=== PATIENT | male | born 1990 | race Two or more races ===

== ENCOUNTER 2017-08-30 00:06 | Inpatient (IN) | payer OTHER ==
[2017-08-30] VITALS (7 sets, daily range): BP systolic 117–144; BP diastolic 73–85
[~2017-08-30] VITALS: Ht 177.8 cm; Wt 127.9 kg
[2017-08-30] MEDS ORDERED: Aspirin Baby 81mg ORAL ONE (00:30)
[2017-08-30 00:48] LABS: BASOPHILS % (AUTO) 0.9 % (0.0-2.0); HEMATOCRIT 48.9 % (42.0-52.0); HEMOGLOBIN 16.1 G/DL (14.2-18.0); LYMPHOCYTES % (AUTO) 15.1 % (20.0-45.0); MEAN CORPUSCULAR VOLUME 85 FL (80-99); MONOCYTES % (AUTO) 7.4 % (1.0-10.0); NEUTROPHILS % (AUTO) 75.6 % (45.0-75.0); PLATELET COUNT 269 K/UL (150-450); RED BLOOD COUNT 5.74 M/UL (4.70-6.10); RED CELL DISTRIBUTION WIDTH 13.7 % (11.6-14.8); WHITE BLOOD COUNT 14.7 K/UL (4.8-10.8)
--- NOTE | 2017-08-30 00:53 | Emergency Room Report ---
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 He is status post surgery when he was an . He presents with chief complaint of syncope. He said he was sitting down when he felt flushed and dizzy. He said he cannot focus. When he stood up symptom got worse. He never passed out. He was able to call 911. This lasted about a minute. He has similar symptom a week ago. He was sent this long though. He had the symptoms rarely in the past. He had a Holter monitor the past that were negative. He also had one for a month and nothing showed up. He did not have any symptoms however when he was wearing Holter monitor. He is back to baseline now. No nausea no vomiting. Has chest tightness when the event occurred. He said he felt his heart was beating fast. Allergies: Coded Allergies: No Known Allergies (Unverified , 08/30/17) Patient History Past Medical History: see triage record, old chart reviewed Past Surgical History: other Pertinent Family History: none Social History: Reports: alcohol use; Denies: smoking Immunizations: other Reviewed Nursing Documentation: PMH: Agreed; PSxH: Agreed Nursing Documentation-PMH Past Medical History: No History, Except For Hx Cardiac Problems: Yes - "heart defect as a child" Review of Systems Eye: Denies: eye pain, blurred vision ENT: Denies: ear pain, nose congestion, throat swelling Respiratory: Denies: cough, shortness of breath Cardiovascular: Reports: palpitations, syncope; Denies: chest pain Gastrointestinal: Denies: abdominal pain, diarrhea, nausea, vomiting Musculoskeletal: Denies: back pain, joint pain Skin: Denies: rash Neurological: Denies: headache, numbness Endocrine: Denies: increased thirst, increased urine Hematologic/Lymphatic: Denies: easy bruising All Other Systems: negative except mentioned in HPI Physical Exam Vital Signs Date Time Temp Pulse Resp B/P (MAP) Pulse Ox O2 Delivery O2 Flow Rate FiO2 08/30/17 00:06 98.1 102 16 125/79 99 Room Air 98.1 vitals normal Sp02 EP Interpretation: reviewed, normal General Appearance: well appearing, no apparent distress, alert, obese Head: normocephalic, atraumatic Eyes: bilateral eye PERRL, bilateral eye EOMI ENT: hearing grossly normal, normal pharynx Neck: full range of motion, supple, no meningismus Respiratory: chest non-tender, lungs clear, normal breath sounds Cardiovascular #1: regular rate, rhythm, no murmur Gastrointestinal: normal bowel sounds, non tender, no mass, no organomegaly, no bruit, non-distended Musculoskeletal: back normal, gait/station normal, normal range of motion Psychiatric: mood/affect normal Skin: warm/dry Medical Decision Making Diagnostic Impression: Primary Impression: Near syncope Additional Impressions: CHF (congestive heart failure) Qualified Codes: I50.9 - Heart failure, unspecified Cardiomyopathy Qualified Codes: I42.9 - Cardiomyopathy, unspecified Morbid obesity with BMI of 40.0-44.9, adult ER Course Patient presents with palpitation and near syncope. I suspect that he probably had a arrhythmia. No symptom while he is here. Chest x-ray shows severe cardiomegaly. Unknown ejection fraction. This may be secondary to his congenital heart disease. Patient will be admitted for further workup. I discussed case with Dr. Ortega who will admit. Laboratory Tests Test 08/30/17 00:33 08/30/17 00:45 White Blood Count 14.7 K/UL (4.8-10.8) H Red Blood Count 5.74 M/UL (4.70-6.10) Hemoglobin 16.1 G/DL (14.2-18.0) Hematocrit 48.9 % (42.0-52.0) Mean Corpuscular Volume 85 FL (80-99) Mean Corpuscular Hemoglobin 28.1 PG (27.0-31.0) Mean Corpuscular Hemoglobin Concent 32.9 G/DL (32.0-36.0) Red Cell Distribution Width 13.7 % (11.6-14.8) Platelet Count 269 K/UL (150-450) Mean Platelet Volume 7.3 FL (6.5-10.1) Neutrophils (%) (Auto) 75.6 % (45.0-75.0) H Lymphocytes (%) (Auto) 15.1 % (20.0-45.0) L Monocytes (%) (Auto) 7.4 % (1.0-10.0) Eosinophils (%) (Auto) 1.0 % (0.0-3.0) Basophils (%) (Auto) 0.9 % (0.0-2.0) Sodium Level 137 MMOL/L (136-145) Potassium Level 4.4 MMOL/L (3.5-5.1) Chloride Level 103 MMOL/L (98-107) Carbon Dioxide Level 26 MMOL/L (21-32) Anion Gap 8 mmol/L (5-15) Blood Urea Nitrogen 16 mg/dL (7-18) Creatinine 1.1 MG/DL (0.55-1.30) Estimat Glomerular Filtration Rate > 60 mL/min (>60) Glucose Level 122 MG/DL (74-106) H Calcium Level 9.2 MG/DL (8.5-10.1) Total Bilirubin 0.4 MG/DL (0.2-1.0) Aspartate Amino Transf (AST/SGOT) 34 U/L (15-37) Alanine Aminotransferase (ALT/SGPT) 59 U/L (12-78) Alkaline Phosphatase 103 U/L (46-116) Total Creatine Kinase 97 U/L (26-308) Creatine Kinase MB 2.2 NG/ML (0.0-3.6) Creatine Kinase MB Relative Index 2.2 Troponin I 0.024 ng/mL (0.000-0.056) Pro-B-Type Natriuretic Peptide 1239 pg/mL (0-125) H Total Protein 7.6 G/DL (6.4-8.2) Albumin 3.5 G/DL (3.4-5.0) Globulin 4.1 g/dL Albumin/Globulin Ratio 0.9 (1.0-2.7) L Urine Color Yellow Urine Appearance Clear Urine pH 5 (4.5-8.0) Urine Specific [place] 1.025 (1.005-1.035) Urine Protein 3+ (NEGATIVE) H Urine Glucose (UA) Negative (NEGATIVE) Urine Ketones Negative (NEGATIVE) Urine Occult Blood Negative (NEGATIVE) Urine Nitrite Negative (NEGATIVE) Urine Bilirubin Negative (NEGATIVE) Urine Urobilinogen Normal MG/DL (0.0-1.0) Urine Leukocyte Esterase 1+ (NEGATIVE) H Urine RBC 0-2 /HPF (0 - 0) H Urine WBC 5-10 /HPF (0 - 0) H Urine Squamous Epithelial Cells None /LPF (NONE/OCC) Urine Bacteria Few /HPF (NONE) Urine Sperm Few /LPF (NONE) Urine Opiates Screen Negative (NEGATIVE) Urine Barbiturates Screen Negative (NEGATIVE) Phencyclidine (PCP) Screen Negative (NEGATIVE) Urine Amphetamines Screen Negative (NEGATIVE) Urine Benzodiazepines Screen Negative (NEGATIVE) Urine Cocaine Screen Negative (NEGATIVE) Urine Marijuana (THC) Screen Negative (NEGATIVE) Lab Results Impression labs with elevated BNP EKG Diagnostic Results Rate: normal Rhythm: NSR ST Segments: other - RBBB ASA given to the pt in ED: Yes Rhythm Strip Diag. Results Rhythm Strip Time: 00:53 EP Interpretation: yes Rate: 94 Rhythm: NSR, no PVC's, no ectopy Chest X-Ray Diagnostic Results Chest X-Ray Diagnostic Results : Chest X-Ray Ordered: Yes # of Views/Limited/Complete: 1 View Indication: Chest Pain EP Interpretation: Yes Interpretation: no consolidation, no effusion, no pneumothorax, other - CM Impression: Other - CM Last Vital Signs Date Time Temp Pulse Resp B/P (MAP) Pulse Ox O2 Delivery O2 Flow Rate FiO2 08/30/17 00:10 102 16 Room Air 08/30/17 00:06 98.1 125/79 99 98.1 Status: improved Disposition: ADMITTED INPATIENT Condition: Serious Scripts No Active Prescriptions or Reported Meds Referrals: NOT CHOSEN IPA/,REFERRING (PCP) AHSAN DALAL M.D. August 30, 2017 00:53
[2017-08-30 00:56] LABS: APPEARANCE,URINE CLEAR; BILIRUBIN, URINE NEGATIVE (NEGATIVE); GLUCOSE, URINE (UA) NEGATIVE (NEGATIVE); KETONES,URINE NEGATIVE (NEGATIVE); NITRITE,URINE NEGATIVE (NEGATIVE); PH,URINE 5 (4.5-8.0); PROTEIN,URINE 3+ (NEGATIVE); UROBILINOGEN,URINE NORMAL MG/DL (0.0-1.0)
[2017-08-30 00:59] LABS: ANION GAP 8 mmol/L (5-15); BLOOD UREA NITROGEN 16 mg/dL (7-18); CALCIUM 9.2 MG/DL (8.5-10.1); CARBON DIOXIDE 26 MMOL/L (21-32); CHLORIDE 103 MMOL/L (98-107); CREATININE 1.1 MG/DL (0.55-1.30); POTASSIUM 4.4 MMOL/L (3.5-5.1); SODIUM 137 MMOL/L (136-145)
[2017-08-30 01:05] LABS: COLOR,URINE YELLOW; LEUKOCYTE ESTERASE ,URINE 1+ (NEGATIVE)
[2017-08-30 01:13] LABS: ALANINE AMINOTRANSFERASE 59 U/L (12-78); ALBUMIN 3.5 G/DL (3.4-5.0); ALBUMIN/GLOBULIN RATIO 0.9 (1.0-2.7); ALKALINE PHOSPHATASE 103 U/L (46-116); ASPARTATE AMINO TRANSFERASE 34 U/L (15-37); BILIRUBIN,TOTAL 0.4 MG/DL (0.2-1.0); CKMB 2.2 NG/ML (0.0-3.6); CREATINE KINASE 97 U/L (26-308)
[2017-08-30] MEDS ORDERED: Norco 5mg/325mg tab ORAL PRN ×2 (02:45→11:12)
[2017-08-30] MEDS: Aspirin Baby 81mg NG SCH (08:10)
[2017-08-30] MEDS: Heparin 5000 units/ml inj SUBQ SCH ×2 (08:11→21:17)
--- NOTE | 2017-08-30 09:35 | Consultation ---
Consult Note Assessment/Plan DICT # [id number] BRAYDON AMARO M.D. August 30, 2017 09:34
--- NOTE | 2017-08-30 11:22 | Diagnostic Imaging Report ---
Indication: Shortness of breath Technique: One view of the chest Comparison: none Findings: The heart is enlarged. There is mild interstitial congestion. The pleural spaces are clear. No focal airspace consolidation Impression: Cardiomegaly. Mild interstitial congestion
[2017-08-30 11:30] LABS: EOSINOPHILS % (AUTO) 1.7 % (0.0-3.0); HEMATOCRIT 50.8 % (42.0-52.0); HEMOGLOBIN 16.3 G/DL (14.2-18.0); LYMPHOCYTES % (AUTO) 20.6 % (20.0-45.0); MEAN CORPUSCULAR VOLUME 86 FL (80-99); MONOCYTES % (AUTO) 9.5 % (1.0-10.0); NEUTROPHILS % (AUTO) 67.2 % (45.0-75.0); PLATELET COUNT 289 K/UL (150-450); RED BLOOD COUNT 5.92 M/UL (4.70-6.10); RED CELL DISTRIBUTION WIDTH 13.9 % (11.6-14.8); WHITE BLOOD COUNT 11.9 K/UL (4.8-10.8)
[2017-08-30] MEDS ORDERED: Azithromycin 250mg tab ORAL SCH (11:30)
[2017-08-30 12:10] LABS: CHOLESTEROL 206 MG/DL (< 200); HDL CHOLESTEROL 40 MG/DL (40-60); TRIGLYCERIDES 204 MG/DL (30-150)
--- NOTE | 2017-08-30 14:39 | History and Physical ---
History of Present Illness General Date patient seen: August 30, 2017 Time patient seen: 12:00 Reason for Hospitalization: Upper Respiratory Illness Present Illness HPI 26 y/o male with a PMH of transposition of the great vessel s/p sx as an who presented with near-syncope. He said he was sitting down when he felt flushed and dizzy and his symptoms worsened when he attempted to stand up. He denies LOC and was able to call 911. This lasted about a minute. Patient states that he had a similar symptom a week ago. He has had a holter monitor in the past that was negative for a month. However, he did not have any symptoms while wearing the Holter monitor. CXR was done in the ED which showed cardiomegaly with mild interstitial congestion. Denies cough, sob, chest pain, n/v, abdominal pain, f/c. Allergies: Coded Allergies: No Known Allergies (Unverified , 08/30/17) Medication History No Active Prescriptions or Reported Meds Patient History History Provided By: Patient Healthcare decision maker Resuscitation status Full Code Advanced Directive on File No Review of Systems All Other Systems: negative except mentioned in HPI Physical Exam General Appearance: no apparent distress, alert HEENT: normocephalic, atraumatic Neck: non-tender, normal alignment, supple Respiratory/Chest: chest wall non-tender, lungs clear, normal breath sounds Cardiovascular/Chest: normal peripheral pulses, normal rate, regular rhythm Abdomen: normal bowel sounds, non tender, soft Skin Exam: normal pigmentation, warm/dry Neurologic: chauffeur airport limousine II-XII grossly normal, no motor/sensory deficits, alert, oriented x 3 Last 24 Hour Vital Signs Date Time Temp Pulse Resp B/P (MAP) Pulse Ox O2 Delivery O2 Flow Rate FiO2 08/30/17 12:00 97.0 80 18 134/74 95 Room Air 97.0 08/30/17 12:00 78 08/30/17 08:00 81 08/30/17 08:00 97.0 72 18 117/73 96 Room Air 97.0 08/30/17 03:30 98.4 89 18 130/76 98 Room Air 98.4 84 08/30/17 03:22 98.4 84 18 130/76 98 Room Air 98.4 08/30/17 02:39 97.9 89 18 129/82 100 Room Air 97.9 08/30/17 01:26 98.0 92 23 126/81 100 Room Air 98.0 08/30/17 00:10 102 16 Room Air 08/30/17 00:06 98.1 102 16 125/79 99 Room Air 98.1 Intake and Output 08/29/17 08/30/17 19:00 07:00 Intake Total 200 ml Output Total 2200 ml Balance -2000 ml Intake Oral 200 ml Output Urine Total 2200 ml Laboratory Tests Test 08/30/17 00:33 08/30/17 00:45 08/30/17 11:05 White Blood Count 14.7 K/UL (4.8-10.8) H 11.9 K/UL (4.8-10.8) H Red Blood Count 5.74 M/UL (4.70-6.10) 5.92 M/UL (4.70-6.10) Hemoglobin 16.1 G/DL (14.2-18.0) 16.3 G/DL (14.2-18.0) Hematocrit 48.9 % (42.0-52.0) 50.8 % (42.0-52.0) Mean Corpuscular Volume 85 FL (80-99) 86 FL (80-99) Mean Corpuscular Hemoglobin 28.1 PG (27.0-31.0) 27.5 PG (27.0-31.0) Mean Corpuscular Hemoglobin Concent 32.9 G/DL (32.0-36.0) 32.0 G/DL (32.0-36.0) Red Cell Distribution Width 13.7 % (11.6-14.8) 13.9 % (11.6-14.8) Platelet Count 269 K/UL (150-450) 289 K/UL (150-450) Mean Platelet Volume 7.3 FL (6.5-10.1) 7.7 FL (6.5-10.1) Neutrophils (%) (Auto) 75.6 % (45.0-75.0) H 67.2 % (45.0-75.0) Lymphocytes (%) (Auto) 15.1 % (20.0-45.0) L 20.6 % (20.0-45.0) Monocytes (%) (Auto) 7.4 % (1.0-10.0) 9.5 % (1.0-10.0) Eosinophils (%) (Auto) 1.0 % (0.0-3.0) 1.7 % (0.0-3.0) Basophils (%) (Auto) 0.9 % (0.0-2.0) 1.0 % (0.0-2.0) Sodium Level 137 MMOL/L (136-145) Potassium Level 4.4 MMOL/L (3.5-5.1) Chloride Level 103 MMOL/L (98-107) Carbon Dioxide Level 26 MMOL/L (21-32) Anion Gap 8 mmol/L (5-15) Blood Urea Nitrogen 16 mg/dL (7-18) Creatinine 1.1 MG/DL (0.55-1.30) Estimat Glomerular Filtration Rate > 60 mL/min (>60) Glucose Level 122 MG/DL (74-106) H Calcium Level 9.2 MG/DL (8.5-10.1) Total Bilirubin 0.4 MG/DL (0.2-1.0) Aspartate Amino Transf (AST/SGOT) 34 U/L (15-37) Alanine Aminotransferase (ALT/SGPT) 59 U/L (12-78) Alkaline Phosphatase 103 U/L (46-116) Total Creatine Kinase 97 U/L (26-308) Creatine Kinase MB 2.2 NG/ML (0.0-3.6) Creatine Kinase MB Relative Index 2.2 Troponin I 0.024 ng/mL (0.000-0.056) 0.028 ng/mL (0.000-0.056) Pro-B-Type Natriuretic Peptide 1239 pg/mL (0-125) H Total Protein 7.6 G/DL (6.4-8.2) Albumin 3.5 G/DL (3.4-5.0) Globulin 4.1 g/dL Albumin/Globulin Ratio 0.9 (1.0-2.7) L Urine Color Yellow Urine Appearance Clear Urine pH 5 (4.5-8.0) Urine Specific [place] 1.025 (1.005-1.035) Urine Protein 3+ (NEGATIVE) H Urine Glucose (UA) Negative (NEGATIVE) Urine Ketones Negative (NEGATIVE) Urine Occult Blood Negative (NEGATIVE) Urine Nitrite Negative (NEGATIVE) Urine Bilirubin Negative (NEGATIVE) Urine Urobilinogen Normal MG/DL (0.0-1.0) Urine Leukocyte Esterase 1+ (NEGATIVE) H Urine RBC 0-2 /HPF (0 - 0) H Urine WBC 5-10 /HPF (0 - 0) H Urine Squamous Epithelial Cells None /LPF (NONE/OCC) Urine Bacteria Few /HPF (NONE) Urine Sperm Few /LPF (NONE) Urine Opiates Screen Negative (NEGATIVE) Urine Barbiturates Screen Negative (NEGATIVE) Phencyclidine (PCP) Screen Negative (NEGATIVE) Urine Amphetamines Screen Negative (NEGATIVE) Urine Benzodiazepines Screen Negative (NEGATIVE) Urine Cocaine Screen Negative (NEGATIVE) Urine Marijuana (THC) Screen Negative (NEGATIVE) Hemoglobin A1c 6.9 % (4.3-6.0) H Triglycerides Level 204 MG/DL (30-150) H Cholesterol Level 206 MG/DL (< 200) H LDL Cholesterol 144 mg/dL (<100) H HDL Cholesterol 40 MG/DL (40-60) Cholesterol/HDL Ratio 5.2 (3.3-4.4) H Thyroid Stimulating Hormone (TSH) 2.300 uiU/mL (0.358-3.740) Height (Feet): 5 Height (Inches): 10.00 Weight (Pounds): 282 Medications Current Medications Medications (Trade) Dose Ordered Sig/Jane Route PRN Reason Start Time Stop Time Status Last Admin Dose Admin Acetaminophen (Tylenol) 650 mg Q4H PRN ORAL Mild Pain/Temp > 100.5 08/30/17 02:45 09/29/17 02:44 Acetaminophen/ Hydrocodone Bitart ([place] 5/325) 1 tab Q6H PRN ORAL For moderate to severe pain 08/30/17 11:12 09/06/17 11:11 Aspirin (ASA) 81 mg DAILY NG 08/30/17 09:00 09/29/17 08:59 08/30/17 08:10 Azithromycin (Zithromax) 250 mg DAILY ORAL 08/31/17 09:00 09/04/17 08:59 Dextrose (Dextrose 50%) 25 ml STAT PRN IV Hypoglycemia 08/30/17 02:45 09/29/17 02:44 Dextrose (Dextrose 50%) 50 ml STAT PRN IV Hypoglycemia 08/30/17 02:45 09/29/17 02:44 Heparin Sodium (Porcine) (Heparin 5000 units/ml) 5,000 units EVERY 12 HOURS SUBQ 08/30/17 09:00 09/29/17 08:59 08/30/17 08:11 Ondansetron HCl (Zofran ODT) 4 mg Q6H PRN ORAL Nausea & Vomiting 08/30/17 02:45 09/29/17 02:44 Assessment/Plan Problem List: (1) UTI (urinary tract infection) ICD Codes: N39.0 - Urinary tract infection, site not specified SNOMED: 04492854 (2) Cardiomegaly ICD Codes: I51.7 - Cardiomegaly SNOMED: 0106441 (3) Near syncope ICD Codes: R55 - Syncope and collapse SNOMED: 772746967, 494273086 (4) Morbid obesity with BMI of 40.0-44.9, adult ICD Codes: E66.01 - Morbid (severe) obesity due to excess calories; Z68.41 - Body mass index (BMI) 40.0-44.9, adult SNOMED: 712739483, 472271451 Status: stable, progressing Assessment/Plan - Admit to inpatient - Cardiology and ID consulted - empiric IV azithromycin and ceftriaxone for possible PNA/UTI coverage - f/u urine cx - CXR showing mild interstitial congestion - Trend WBC - syncope workup: trops x 3, tele monitor, TTE - check TSH, lipid panel, A1c - EKG showing NSR with RBBB - pain control and supportive care DVT Prophylaxis: HSQ Code Status: Full Hospital Classification Declaration: Based on this initial evaluation, and depending on the patient's clinical course, I anticipate that this patient will require hospitalization for 2-3 days for syncope and close respiratory/ hemodynamic monitoring. Disposition: Once the patient is stable to leave the hospital, I anticipate the patient will likely be discharged to the following environment: home I spent 72 minutes on this patient's case, and 46 minutes were dedicated to counseling and/or care coordination. Discussed with patient/family, nursing staff, SW/CM, showroom executive director, ID, and paper conservator regarding clinical status, treatment course, and disposition planning. Time of note may not reflect time of encounter. Elizabeth Marin NP August 30, 2017 14:39
[2017-08-30] MEDS: cefTRIAXone 1 GM in D5W 110 ML IVPB SCH (16:08)
--- NOTE | 2017-08-30 17:30 | Consultation ---
DATE OF CONSULTATION: 08/30/2017 PULMONARY CONSULTATION CONSULTING PHYSICIAN: Von Hummel M.D. REFERRING PHYSICIAN: Leny Victor M.D. REASON FOR CONSULTATION: Respiratory illness. HISTORY OF PRESENT ILLNESS: The patient is a 26-year-old male with history of transposition of the great vessels, status post repair as an , who has been generally healthy as an adult, who presented with syncope overnight. For the past 3 to 4 days, he has been having some cough and congestion, but he states he has been keeping himself hydrated. Yesterday, he had an episode where he felt chilled and then got lightheaded. He never lost consciousness. He came into the emergency department for further evaluation. He currently feels better. No dizziness. No headache or change in vision. His cough is better. No fevers, chills, rhinorrhea, nausea, vomiting, diarrhea, constipation, abdominal pain, or urinary complaints. He last saw the Adult Congenital Heart team in 2016 and has not followed up since. PAST MEDICAL HISTORY: Congenital heart disease, transposition of the great vessels, status post repair. PAST SURGICAL HISTORY: 1. Repair of transposition of the great vessels. 2. Appendectomy. ALLERGIES: No known drug allergies. MEDICATIONS: Prior to admission, medications none. Current medications reviewed. SOCIAL HISTORY: He denies any tobacco, alcohol, or drug use. FAMILY HISTORY: Noncontributory. REVIEW OF SYSTEMS: Negative other than history of present illness. PHYSICAL EXAMINATION: VITAL SIGNS: Temperature 98.4, pulse 89, blood pressure 130/76, respiratory rate 18. GENERAL: He is an obese male, in no acute distress. Awake, alert, and oriented x3. HEENT: Normocephalic and atraumatic. Oropharynx is clear with moist mucous membranes. Mallampati score 4. CHEST: Clear. HEART: Regular. ABDOMEN: Benign. NEUROLOGIC: Exam is nonfocal. ANCILLARY DATA: White count 14.7, hemoglobin 16.1, and platelet count 269,000. Sodium 137, potassium 4.4, chloride 102, bicarbonate 26, BUN 16, creatinine 1.1, glucose 122, calcium 9.2. Total bilirubin 0.4, AST 34, ALT 59, alkaline phosphatase 103. CK 97. BNP 1239. U-tox negative. Urinalysis, 3+ protein, 1+ LE, 0 to 2 red, 5 to 10 white. 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 Possible URI versus bronchitis. He had an elevated BNP in the ER and mildly edematous on exam and received 1 dose of Lasix. I will be cautious with over-diuresis, however. I suspect the etiology of the syncope is secondary to his recent respiratory illness, but given his history of congenital heart disease and the fact that he has been lost to follow up, full cardiac workup is underway. PROBLEM LIST: 1. Syncope. 2. Respiratory illness, URI versus bronchitis. 3. Transposition of the great vessels, status post repair as a child. 4. Component of decompensated heart failure. 5. 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 6. Leukocytosis, likely secondary to respiratory illness and possible UTI. TREATMENT PLAN: 1. Optimize pulmonary hygiene/mobilize as tolerated. 2. Monitor volumes. 3. Start azithromycin p.o. 4. Follow up urine culture. 5. Mucinex and p.r.n. Robitussin. 6. Follow up echocardiogram. 7. Cardiology evaluation. 8. DVT prophylaxis. Heparin subcutaneous. 9. The patient needs to follow up with Cardiomyopathy Clinic or Adult Congenital Heart Disease program after discharge. 10. Patient should have a sleep study. 11. Weight-loss diet. 12. Exercise discussed with the patient. Dr. Victor, thank you for allowing me to assist in the care of your patient. If I may be of any assistance, please do not hesitate to ask. Stanley Jacob JOB#: [id number] CC:
--- NOTE | 2017-08-30 19:56 | Infectious Diseases Prog Note ---
Assessment/Plan Assessment/Plan Full consult dictated: A) 1) leukocytosis, sirs, ? sepsis, uri/bronchitis, ? cap, ? uti 2) pmh noted 3) allergies - negative P) 1) rocephin and azithromycin 2) check cultures, labs and chest x-ray 3) thank you Subjective Allergies: Coded Allergies: No Known Allergies (Unverified , 08/30/17) Objective Vital Signs Last 24 Hour Vital Signs Date Time Temp Pulse Resp B/P (MAP) Pulse Ox O2 Delivery O2 Flow Rate FiO2 08/30/17 16:30 97.2 92 18 130/74 99 Room Air 97.2 08/30/17 16:00 76 08/30/17 12:00 97.0 80 18 134/74 95 Room Air 97.0 08/30/17 12:00 78 08/30/17 08:00 81 08/30/17 08:00 97.0 72 18 117/73 96 Room Air 97.0 08/30/17 03:30 98.4 89 18 130/76 98 Room Air 98.4 84 08/30/17 03:22 98.4 84 18 130/76 98 Room Air 98.4 08/30/17 02:39 97.9 89 18 129/82 100 Room Air 97.9 08/30/17 01:26 98.0 92 23 126/81 100 Room Air 98.0 08/30/17 00:10 102 16 Room Air 08/30/17 00:06 98.1 102 16 125/79 99 Room Air 98.1 Height (Feet): 5 Height (Inches): 10.00 Weight (Pounds): 282 Laboratory Tests Test 08/30/17 00:33 08/30/17 00:45 08/30/17 11:05 White Blood Count 14.7 K/UL (4.8-10.8) H 11.9 K/UL (4.8-10.8) H Red Blood Count 5.74 M/UL (4.70-6.10) 5.92 M/UL (4.70-6.10) Hemoglobin 16.1 G/DL (14.2-18.0) 16.3 G/DL (14.2-18.0) Hematocrit 48.9 % (42.0-52.0) 50.8 % (42.0-52.0) Mean Corpuscular Volume 85 FL (80-99) 86 FL (80-99) Mean Corpuscular Hemoglobin 28.1 PG (27.0-31.0) 27.5 PG (27.0-31.0) Mean Corpuscular Hemoglobin Concent 32.9 G/DL (32.0-36.0) 32.0 G/DL (32.0-36.0) Red Cell Distribution Width 13.7 % (11.6-14.8) 13.9 % (11.6-14.8) Platelet Count 269 K/UL (150-450) 289 K/UL (150-450) Mean Platelet Volume 7.3 FL (6.5-10.1) 7.7 FL (6.5-10.1) Neutrophils (%) (Auto) 75.6 % (45.0-75.0) H 67.2 % (45.0-75.0) Lymphocytes (%) (Auto) 15.1 % (20.0-45.0) L 20.6 % (20.0-45.0) Monocytes (%) (Auto) 7.4 % (1.0-10.0) 9.5 % (1.0-10.0) Eosinophils (%) (Auto) 1.0 % (0.0-3.0) 1.7 % (0.0-3.0) Basophils (%) (Auto) 0.9 % (0.0-2.0) 1.0 % (0.0-2.0) Sodium Level 137 MMOL/L (136-145) Potassium Level 4.4 MMOL/L (3.5-5.1) Chloride Level 103 MMOL/L (98-107) Carbon Dioxide Level 26 MMOL/L (21-32) Anion Gap 8 mmol/L (5-15) Blood Urea Nitrogen 16 mg/dL (7-18) Creatinine 1.1 MG/DL (0.55-1.30) Estimat Glomerular Filtration Rate > 60 mL/min (>60) Glucose Level 122 MG/DL (74-106) H Calcium Level 9.2 MG/DL (8.5-10.1) Total Bilirubin 0.4 MG/DL (0.2-1.0) Aspartate Amino Transf (AST/SGOT) 34 U/L (15-37) Alanine Aminotransferase (ALT/SGPT) 59 U/L (12-78) Alkaline Phosphatase 103 U/L (46-116) Total Creatine Kinase 97 U/L (26-308) Creatine Kinase MB 2.2 NG/ML (0.0-3.6) Creatine Kinase MB Relative Index 2.2 Troponin I 0.024 ng/mL (0.000-0.056) 0.028 ng/mL (0.000-0.056) Pro-B-Type Natriuretic Peptide 1239 pg/mL (0-125) H Total Protein 7.6 G/DL (6.4-8.2) Albumin 3.5 G/DL (3.4-5.0) Globulin 4.1 g/dL Albumin/Globulin Ratio 0.9 (1.0-2.7) L Urine Color Yellow Urine Appearance Clear Urine pH 5 (4.5-8.0) Urine Specific [place] 1.025 (1.005-1.035) Urine Protein 3+ (NEGATIVE) H Urine Glucose (UA) Negative (NEGATIVE) Urine Ketones Negative (NEGATIVE) Urine Occult Blood Negative (NEGATIVE) Urine Nitrite Negative (NEGATIVE) Urine Bilirubin Negative (NEGATIVE) Urine Urobilinogen Normal MG/DL (0.0-1.0) Urine Leukocyte Esterase 1+ (NEGATIVE) H Urine RBC 0-2 /HPF (0 - 0) H Urine WBC 5-10 /HPF (0 - 0) H Urine Squamous Epithelial Cells None /LPF (NONE/OCC) Urine Bacteria Few /HPF (NONE) Urine Sperm Few /LPF (NONE) Urine Opiates Screen Negative (NEGATIVE) Urine Barbiturates Screen Negative (NEGATIVE) Phencyclidine (PCP) Screen Negative (NEGATIVE) Urine Amphetamines Screen Negative (NEGATIVE) Urine Benzodiazepines Screen Negative (NEGATIVE) Urine Cocaine Screen Negative (NEGATIVE) Urine Marijuana (THC) Screen Negative (NEGATIVE) Hemoglobin A1c 6.9 % (4.3-6.0) H Triglycerides Level 204 MG/DL (30-150) H Cholesterol Level 206 MG/DL (< 200) H LDL Cholesterol 144 mg/dL (<100) H HDL Cholesterol 40 MG/DL (40-60) Cholesterol/HDL Ratio 5.2 (3.3-4.4) H Thyroid Stimulating Hormone (TSH) 2.300 uiU/mL (0.358-3.740) Current Medications Medications (Trade) Dose Ordered Sig/Jane Route PRN Reason Start Time Stop Time Status Last Admin Dose Admin Acetaminophen (Tylenol) 650 mg Q4H PRN ORAL Mild Pain/Temp > 100.5 08/30/17 02:45 09/29/17 02:44 Acetaminophen/ Hydrocodone Bitart ([place] 5/325) 1 tab Q6H PRN ORAL For moderate to severe pain 08/30/17 11:12 09/06/17 11:11 Aspirin (ASA) 81 mg DAILY NG 08/30/17 09:00 09/29/17 08:59 08/30/17 08:10 Azithromycin (Zithromax) 250 mg DAILY ORAL 08/31/17 09:00 09/04/17 08:59 Ceftriaxone Sodium 1 gm/ Dextrose 110 ml @ 220 mls/hr Q24H IVPB 08/30/17 16:00 09/06/17 15:59 08/30/17 16:08 Dextrose (Dextrose 50%) 25 ml STAT PRN IV Hypoglycemia 08/30/17 02:45 09/29/17 02:44 Dextrose (Dextrose 50%) 50 ml STAT PRN IV Hypoglycemia 08/30/17 02:45 09/29/17 02:44 Heparin Sodium (Porcine) (Heparin 5000 units/ml) 5,000 units EVERY 12 HOURS SUBQ 08/30/17 09:00 09/29/17 08:59 08/30/17 08:11 Ondansetron HCl (Zofran ODT) 4 mg Q6H PRN ORAL Nausea & Vomiting 08/30/17 02:45 09/29/17 02:44 Gerri Chery MD August 30, 2017 19:56
--- NOTE | 2017-08-30 22:33 | Cardiology Report ---
APPROVED REPORT EKG Measurement Heart [id number] Normal sinus rhythm Right bundle branch block, plus right ventricular hypertrophy Abnormal ECG
[2017-08-31] VITALS: BP 124/68
--- NOTE | 2017-08-31 01:30 | Consultation ---
DATE OF CONSULTATION: 08/30/2017 INFECTIOUS DISEASE CONSULTATION CONSULTING PHYSICIAN: Gerri Chery M.D. ATTENDING/REFERRING PHYSICIAN: Von Hummel M.D. REASON FOR CONSULTATION: Elevated white count, possible urinary tract infection, possible community-acquired pneumonia, questionable sepsis. CHIEF COMPLAINT: The patient's chief complaint coming into the hospital is syncope and congestive heart failure. 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 The patient comes in with congestive heart failure and syncope. The patient also came in with cough and congestion. 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 He was also lightheaded today. He never lost consciousness. The patient was noted to have positive urinalysis, elevated white count. Question, the patient has urinary tract infection, questionable sepsis. Infectious Disease consultation is requested. The patient currently is on Rocephin and azithromycin to cover urinary tract infection and respiratory infection and questionable community-acquired pneumonia. MAR was noted. Orders were noted. Notes and records were reviewed. PAST MEDICAL HISTORY: The patient's past medical history includes the history of following. 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 Otherwise, no other past medical history. No diabetes or hypertension. No history of cancer. MEDICATIONS: Upon reviewing the MAR, he is on the following medications. He is on azithromycin, Rocephin, hydrocodone, heparin, aspirin, acetaminophen, and Zofran . He has been given furosemide and aspirin. Outside medications noted. ALLERGIES: No known drug allergies. FAMILY HISTORY: Noncontributory. SOCIAL HISTORY: Negative for smoking, alcohol, and drug abuse. REVIEW OF SYSTEMS: CONSTITUTIONAL: The patient came in with presyncope, lightheadedness, and congestion. No significant secretions, may be mild cough. No hemoptysis. HEAD AND NECK: No thrush, dysphagia, sinus tenderness, or loss of consciousness. No seizures. CARDIAC: No chest pain. GASTROINTESTINAL: No nausea, vomiting, or diarrhea. GENITOURINARY: There is no significant dysuria or frequency. He does not keep hydrated however. No urethral discharge. SKIN: No rash or itching. EXTREMITIES: No extremity pain. NEUROLOGIC: No seizures. PHYSICAL EXAMINATION: VITAL SIGNS: Temperature is 97.2, pulse rate 92, respiratory rate 18, blood pressure 138/74, and saturation 99% on room air. His heart rate has been as high as 102. GENERAL: Alert, responsive, in no distress, and oriented x3. HEAD AND NECK: Oral exam, no thrush. Eye exam, no icterus. Neck is supple. No JVD. Normocephalic. No facial droop. No neck stiffness. HEART: Regular with a possible murmur. LUNGS: Few bilateral rhonchi and crackles. No definite rales. ABDOMEN: Soft. Positive bowel sounds. SKIN: No rash. MUSCULOSKELETAL: No effusion. Legs are without cellulitis. PERIPHERAL VASCULAR: No cyanosis. No gangrene. GENITOURINARY: No Veliz. LINES: Line sites without phlebitis. NEUROLOGIC: Intact. Nonfocal. No CVA tenderness. LABORATORY AND DIAGNOSTIC DATA: Laboratory data is as follows. UA had 1+ leukocyte esterase and 5 to 10 white blood cells. Creatinine is 1.1. LFTs were noted. White count 14.7 and hemoglobin 16.1 on admission. White count now is 11.9 and hemoglobin is 16.3. Blood and urine culture have been ordered. Chest x-ray shows cardiomegaly with mild interstitial congestion. ASSESSMENT AND PLAN: 1. The patient has leukocytosis and does have sirs, with elevated heart rate on admission and leukocytosis. It is unclear if the patient is septic. Differential diagnoses includes possible urinary tract infection, possible respiratory infection including possible community-acquired pneumonia. Chest x-ray shows no obvious pneumonia or consolidation at this time. It did show some mild interstitial congestion. At this time, we will continue Rocephin and azithromycin to cover possible urinary tract infection and respiratory infection including community-acquired pneumonia. We will check followup chest x-ray, urine culture, and blood cultures. I believe cultures have been ordered. Continue antibiotics Rocephin and azithromycin pending workup. Continue pulmonary medicine also. 2. History of transposition of the great vessels status post surgery as an infant. 3. Past medical history is otherwise negative. 4. Social history is negative. 5. Family history is noncontributory. 6. Allergies are negative. 7. MAR was noted. 8. Case was discussed with RN. 9. Case was discussed with the patient. 10. Continue treatment per primary consultants. Gerri Chery M.D. DR: SHEN JOB#: [id number] CC: KAM
[2017-08-31 04:00] VITALS: BP 120/78
[2017-08-31 08:00] VITALS: BP 113/72
[2017-08-31 08:05] LABS: BASOPHILS % (AUTO) 1.4 % (0.0-2.0); EOSINOPHILS % (AUTO) 1.8 % (0.0-3.0); HEMATOCRIT 49.4 % (42.0-52.0); HEMOGLOBIN 16.4 G/DL (14.2-18.0); LYMPHOCYTES % (AUTO) 27.6 % (20.0-45.0); MEAN CORPUSCULAR VOLUME 85 FL (80-99); NEUTROPHILS % (AUTO) 64.2 % (45.0-75.0); PLATELET COUNT 243 K/UL (150-450); WHITE BLOOD COUNT 10.6 K/UL (4.8-10.8)
[2017-08-31] MEDS: Aspirin Baby 81mg NG SCH (08:16)
[2017-08-31] MEDS: Azithromycin 250mg tab ORAL SCH (08:16)
[2017-08-31] MEDS: Heparin 5000 units/ml inj SUBQ SCH ×2 (08:18→21:23)
[2017-08-31 08:24] LABS: ANION GAP 9 mmol/L (5-15); BLOOD UREA NITROGEN 18 mg/dL (7-18); CALCIUM 9.1 MG/DL (8.5-10.1); CARBON DIOXIDE 25 MMOL/L (21-32); CHLORIDE 103 MMOL/L (98-107); POTASSIUM 4.2 MMOL/L (3.5-5.1); SODIUM 137 MMOL/L (136-145)
[2017-08-31 12:00] VITALS: BP 123/74
--- NOTE | 2017-08-31 13:33 | General Progress Note ---
Assessment/Plan Problem List: (1) Cardiomyopathy ICD Codes: I42.9 - Cardiomyopathy, unspecified SNOMED: 30220433, 093143831 Qualifiers: Qualified Codes: I42.9 - Cardiomyopathy, unspecified (2) Near syncope ICD Codes: R55 - Syncope and collapse SNOMED: 792976350, 451738054 (3) Morbid obesity with BMI of 40.0-44.9, adult ICD Codes: E66.01 - Morbid (severe) obesity due to excess calories; Z68.41 - Body mass index (BMI) 40.0-44.9, adult SNOMED: 909388336, 889431625 (4) CHF (congestive heart failure) ICD Codes: I50.9 - Heart failure, unspecified SNOMED: 19468490, 150901930 Qualifiers: Qualified Codes: I50.9 - Heart failure, unspecified (5) Cardiomegaly ICD Codes: I51.7 - Cardiomegaly SNOMED: 3679398 (6) UTI (urinary tract infection) ICD Codes: N39.0 - Urinary tract infection, site not specified SNOMED: 10576335 Assessment/Plan - Cardiology and ID consulted - empiric IV azithromycin and ceftriaxone for possible PNA/UTI coverage - f/u urine cx - CXR showing mild interstitial congestion - Trend WBC - syncope workup: trops x 3, tele monitor, TTE - check TSH, lipid panel, A1c - EKG showing NSR with RBBB - pain control and supportive care Subjective Date patient seen: August 31, 2017 Constitutional: Denies: no symptoms, chills, diaphoresis, fever, malaise, weakness, other HEENT: Denies: no symptoms, eye pain, blurred vision, tearing, double vision, ear pain, ear discharge, nose pain, nose congestion, throat pain, throat swelling, mouth pain, mouth swelling, other Cardiovascular: Denies: no symptoms, chest pain, edema, irregular heart rate, lightheadedness, palpitations, syncope, other Neurologic/Psychiatric: Reports: no symptoms, anxiety, depressed, emotional problems, headache, numbness, paresthesia, pre-existing deficit, seizure, tingling, tremors, weakness, other Allergies: Coded Allergies: No Known Allergies (Unverified , 08/30/17) Objective Last 24 Hour Vital Signs Date Time Temp Pulse Resp B/P (MAP) Pulse Ox O2 Delivery O2 Flow Rate FiO2 08/31/17 08:00 97.3 77 20 113/72 99 Room Air 97.3 08/31/17 08:00 70 08/31/17 04:00 97.1 82 20 120/78 99 Room Air 97.1 08/31/17 04:00 85 08/31/17 00:00 97.8 71 18 124/68 99 Room Air 97.8 08/31/17 00:00 85 08/30/17 20:00 99 08/30/17 20:00 97.5 95 18 144/85 100 Room Air 97.5 08/30/17 16:30 97.2 92 18 130/74 99 Room Air 97.2 08/30/17 16:00 76 Intake and Output 08/30/17 08/31/17 19:00 07:00 Intake Total 910 ml 600 ml Balance 910 ml 600 ml Intake Oral 800 ml 600 ml IV Total 110 ml # Voids 3 Laboratory Tests 08/31/17 07:05: White Blood Count 10.6, Red Blood Count 5.80, Hemoglobin 16.4, Hematocrit 49.4, Mean Corpuscular Volume 85, Mean Corpuscular Hemoglobin 28.2, Mean Corpuscular Hemoglobin Concent 33.2, Red Cell Distribution Width 14.0, Platelet Count 243, Mean Platelet Volume 6.9, Neutrophils (%) (Auto) 64.2, Lymphocytes (%) (Auto) 27.6, Monocytes (%) (Auto) 5.0, Eosinophils (%) (Auto) 1.8, Basophils (%) (Auto ) 1.4, Sodium Level 137, Potassium Level 4.2, Chloride Level 103, Carbon Dioxide Level 25, Anion Gap 9, Blood Urea Nitrogen 18, Creatinine 1.0, Estimat Glomerular Filtration Rate > 60, Glucose Level 113H, Calcium Level 9.1, Troponin I 0.045 Height (Feet): 5 Height (Inches): 10.00 Weight (Pounds): 282 General Appearance: WD/WN Neck: non-tender Respiratory/Chest: rhonchi - bilaterally Abdomen: soft, no mass Extremities: non-tender, normal inspection Royce Sesay M.D. August 31, 2017 13:33
[2017-08-31] MEDS: cefTRIAXone 1 GM in D5W 110 ML IVPB SCH (15:20)
[2017-08-31 16:00] VITALS: BP 122/82
--- NOTE | 2017-08-31 16:18 | Cardiac Electrophysiology PN ---
Subjective Subjective [id number] Objective Last 24 Hour Vital Signs Date Time Temp Pulse Resp B/P (MAP) Pulse Ox O2 Delivery O2 Flow Rate FiO2 08/31/17 12:00 96 08/31/17 12:00 97.3 86 20 123/74 99 Room Air 97.3 08/31/17 08:00 97.3 77 20 113/72 99 Room Air 97.3 08/31/17 08:00 70 08/31/17 04:00 97.1 82 20 120/78 99 Room Air 97.1 08/31/17 04:00 85 08/31/17 00:00 97.8 71 18 124/68 99 Room Air 97.8 08/31/17 00:00 85 08/30/17 20:00 99 08/30/17 20:00 97.5 95 18 144/85 100 Room Air 97.5 08/30/17 16:30 97.2 92 18 130/74 99 Room Air 97.2 Intake and Output 08/30/17 08/31/17 19:00 07:00 Intake Total 910 ml 600 ml Balance 910 ml 600 ml Intake Oral 800 ml 600 ml IV Total 110 ml # Voids 3 Laboratory Tests Test 08/31/17 07:05 White Blood Count 10.6 K/UL (4.8-10.8) Red Blood Count 5.80 M/UL (4.70-6.10) Hemoglobin 16.4 G/DL (14.2-18.0) Hematocrit 49.4 % (42.0-52.0) Mean Corpuscular Volume 85 FL (80-99) Mean Corpuscular Hemoglobin 28.2 PG (27.0-31.0) Mean Corpuscular Hemoglobin Concent 33.2 G/DL (32.0-36.0) Red Cell Distribution Width 14.0 % (11.6-14.8) Platelet Count 243 K/UL (150-450) Mean Platelet Volume 6.9 FL (6.5-10.1) Neutrophils (%) (Auto) 64.2 % (45.0-75.0) Lymphocytes (%) (Auto) 27.6 % (20.0-45.0) Monocytes (%) (Auto) 5.0 % (1.0-10.0) Eosinophils (%) (Auto) 1.8 % (0.0-3.0) Basophils (%) (Auto) 1.4 % (0.0-2.0) Sodium Level 137 MMOL/L (136-145) Potassium Level 4.2 MMOL/L (3.5-5.1) Chloride Level 103 MMOL/L (98-107) Carbon Dioxide Level 25 MMOL/L (21-32) Anion Gap 9 mmol/L (5-15) Blood Urea Nitrogen 18 mg/dL (7-18) Creatinine 1.0 MG/DL (0.55-1.30) Estimat Glomerular Filtration Rate > 60 mL/min (>60) Glucose Level 113 MG/DL (74-106) H Calcium Level 9.1 MG/DL (8.5-10.1) Troponin I 0.045 ng/mL (0.000-0.056) George Mares MD August 31, 2017 16:18
--- NOTE | 2017-08-31 19:00 | Consultation ---
DATE OF CONSULTATION: 08/31/2017 CARDIOLOGY CONSULTATION CONSULTING PHYSICIAN: George Mares M.D. REFERRING PHYSICIAN: Von Hummel M.D. REASON FOR CONSULTATION: Cardiomyopathy, ejection fraction of 30% in a patient with 9 beats of ventricular tachycardia as well as [place] type 2 heart block. HISTORY OF PRESENT ILLNESS: The patient is a 26-year-old male with history of transposition of great artery, status post repair as an infant who presented to the hospital after he had syncopal episodes. The patient also felt that he has been having some cough and congestion, and he has been trying to keep himself hydrated. The patient, however, denies loss of consciousness, but he felt he suddenly felt really weak and felt like passing out. The patient came to the emergency room, was evaluated, and was started on antibiotic for possible respiratory tract infection and UTI. He underwent an echocardiogram that showed ejection fraction of only 30% to 35%. REVIEW OF SYSTEMS: Review of systems was performed and was negative other than what was mentioned in the history of present illness. PAST MEDICAL HISTORY: 1. Transposition of great artery, status post surgery. 2. History of appendectomy. FAMILY HISTORY: Noncontributory. SOCIAL HISTORY: He lives at home. PHYSICAL EXAMINATION: VITAL SIGNS: Blood pressure is 123/74, pulse is 86, respirations 18, and he is afebrile. HEAD AND NECK: Mild JVD. LUNGS: Decreased breath sounds. CARDIOVASCULAR: Regular S1 and S2 with no gallop or murmur. ABDOMEN: Soft and obese. EXTREMITIES: 1+ pitting edema. LABORATORY AND DIAGNOSTIC DATA: Labs show white count of 10.3, hemoglobin 16.4, hematocrit of 49.4, and platelet count of 243. Sodium 137, potassium 4.2, BUN of 18, creatinine of 1, and glucose of 113. Troponin negative x2. ASSESSMENT AND PLAN: 1. Newly diagnosed severe cardiomyopathy, ejection fraction only 30% to 35%. We will start the patient on lisinopril, Aldactone, and Lasix. We will Hold off on Coreg in view of the patient's episodes of [place] type 2 heart block. The patient likely would need cardiac catheterization for further evaluation of his coronaries. I will discuss this with the patient and if he agrees, the patient is to be transferred. 2. Episode of [place] type 2 heart block. This happened today at 10:44 a.m. The patient also has underlying complete right bundle-branch block as well as right axis deviation and borderline first-degree AV block. 3. Status post transposition of great artery surgery. 4. Possible pneumonia, on ceftriaxone and azithromycin. Thank you very much for allowing me to participate in the care of this patient. Please do not hesitate to contact me for any questions regarding my evaluation. George Mares M.D. DR: GAL JOB#: [id number] CC:
[2017-08-31 20:00] VITALS: BP 117/71
[2017-09-01] VITALS: BP_SYST 125; BP_SYST 137; BP_DIAS 73; BP_DIAS 94
[2017-09-01 04:00] VITALS: BP 147/76
--- NOTE | 2017-09-01 07:39 | Pulmonology Progress Note ---
Assessment/Plan Assessment/Plan DATE OF VISIT: 08/31/2017 PULMONARY FOLLOW UP HISTORY OF PRESENT ILLNESS: The patient is a 26-year-old male with history of transposition of the great vessels, status post repair as an , who has been generally healthy as an adult, who presented with syncope overnight. For the past 3 to 4 days, he has been having some cough and congestion, but he states he has been keeping himself hydrated. Yesterday, he had an episode where he felt chilled and then got lightheaded. He never lost consciousness. He came into the emergency department for further evaluation. He currently feels better. No dizziness. No headache or change in vision. His cough is better. No fevers, chills, rhinorrhea, nausea, vomiting, diarrhea, constipation, abdominal pain, or urinary complaints. He last saw the Adult Congenital Heart team in 2016 and has not followed up since. PAST MEDICAL HISTORY: Congenital heart disease, transposition of the great vessels, status post repair. PAST SURGICAL HISTORY: 1. Repair of transposition of the great vessels. 2. Appendectomy. ALLERGIES: No known drug allergies. MEDICATIONS: Prior to admission, medications none. Current medications reviewed. SOCIAL HISTORY: He denies any tobacco, alcohol, or drug use. FAMILY HISTORY: Noncontributory. REVIEW OF SYSTEMS: Negative other than history of present illness. PHYSICAL EXAMINATION: VITAL SIGNS: Temperature 98.4, pulse 89, blood pressure 130/76, respiratory rate 18. GENERAL: He is an obese male, in no acute distress. Awake, alert, and oriented x3. HEENT: Normocephalic and atraumatic. Oropharynx is clear with moist mucous membranes. Mallampati score 4. CHEST: Clear. HEART: Regular. ABDOMEN: Benign. NEUROLOGIC: Exam is nonfocal. ANCILLARY DATA: White count 14.7, hemoglobin 16.1, and platelet count 269,000. Sodium 137, potassium 4.4, chloride 102, bicarbonate 26, BUN 16, creatinine 1.1, glucose 122, calcium 9.2. Total bilirubin 0.4, AST 34, ALT 59, alkaline phosphatase 103. CK 97. BNP 1239. U-tox negative. Urinalysis, 3+ protein, 1+ LE, 0 to 2 red, 5 to 10 white. 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 Possible URI versus bronchitis. He had an elevated BNP in the ER and mildly edematous on exam and received 1 dose of Lasix. I will be cautious with over-diuresis, however. I suspect the etiology of the syncope is secondary to his recent respiratory illness, but given his history of congenital heart disease and the fact that he has been lost to follow up, full cardiac workup is underway. PROBLEM LIST: 1. Syncope. 2. Respiratory illness, URI versus bronchitis. 3. Transposition of the great vessels, status post repair as a child. 4. Component of decompensated heart failure. 5. 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 6. Leukocytosis, likely secondary to respiratory illness and possible UTI. TREATMENT PLAN: 1. Optimize pulmonary hygiene/mobilize as tolerated. 2. Monitor volumes. 3. Start azithromycin p.o. 4. Follow up urine culture. 5. Mucinex and p.r.n. Robitussin. 6. Follow up echocardiogram. 7. Cardiology evaluation. 8. DVT prophylaxis. Heparin subcutaneous. 9. The patient needs to follow up with Cardiomyopathy Clinic or Adult Congenital Heart Disease program after discharge. 10. Patient should have a sleep study. 11. Weight-loss diet. 12. Exercise discussed with the patient. Date of Visit 08/31/2017 Subjective Allergies: Coded Allergies: No Known Allergies (Unverified , 08/30/17) Objective Last 24 Hour Vital Signs Date Time Temp Pulse Resp B/P (MAP) Pulse Ox O2 Delivery O2 Flow Rate FiO2 09/01/17 04:00 98.1 90 26 147/76 97 Room Air 98.1 09/01/17 04:00 96 09/01/17 00:00 97.7 93 28 125/73 99 Room Air 97.7 09/01/17 00:00 97 08/31/17 20:00 93 08/31/17 20:00 96.8 85 20 117/71 97 96.8 08/31/17 16:00 97.7 86 20 122/82 99 Room Air 97.7 08/31/17 16:00 93 08/31/17 12:00 96 08/31/17 12:00 97.3 86 20 123/74 99 Room Air 97.3 08/31/17 08:00 97.3 77 20 113/72 99 Room Air 97.3 08/31/17 08:00 70 Intake and Output 08/31/17 09/01/17 19:00 07:00 Intake Total 360 ml Balance 360 ml Intake Oral 360 ml # Voids 1 Current Medications Medications (Trade) Dose Ordered Sig/Jane Route PRN Reason Start Time Stop Time Status Last Admin Dose Admin Acetaminophen (Tylenol) 650 mg Q4H PRN ORAL Mild Pain/Temp > 100.5 08/30/17 02:45 09/29/17 02:44 Acetaminophen/ Hydrocodone Bitart ([place] 5/325) 1 tab Q6H PRN ORAL For moderate to severe pain 08/30/17 11:12 09/06/17 11:11 Aspirin (ASA) 81 mg DAILY NG 08/30/17 09:00 09/29/17 08:59 08/31/17 08:16 Azithromycin (Zithromax) 250 mg DAILY ORAL 08/31/17 09:00 09/04/17 08:59 08/31/17 08:16 Ceftriaxone Sodium 1 gm/ Dextrose 110 ml @ 220 mls/hr Q24H IVPB 08/30/17 16:00 09/06/17 15:59 08/31/17 15:20 Dextrose (Dextrose 50%) 25 ml STAT PRN IV Hypoglycemia 08/30/17 02:45 09/29/17 02:44 Dextrose (Dextrose 50%) 50 ml STAT PRN IV Hypoglycemia 08/30/17 02:45 09/29/17 02:44 Furosemide (Lasix) 40 mg DAILY IV 09/01/17 09:00 10/01/17 08:59 Heparin Sodium (Porcine) (Heparin 5000 units/ml) 5,000 units EVERY 12 HOURS SUBQ 08/30/17 09:00 09/29/17 08:59 08/31/17 21:23 Lisinopril (Zestril) 10 mg DAILY ORAL 09/01/17 09:00 10/01/17 08:59 Ondansetron HCl (Zofran ODT) 4 mg Q6H PRN ORAL Nausea & Vomiting 08/30/17 02:45 09/29/17 02:44 Spironolactone (Aldactone) 25 mg DAILY ORAL 09/01/17 09:00 10/01/17 08:59 Antonio Salguero MD September 01, 2017 07:39
[2017-09-01 08:00] VITALS: BP 117/70
[2017-09-01] MEDS: Heparin 5000 units/ml inj SUBQ SCH ×2 (08:20→21:34)
[2017-09-01] MEDS: Aspirin Baby 81mg NG SCH (08:21)
[2017-09-01] MEDS: Azithromycin 250mg tab ORAL SCH (08:22)
[2017-09-01] MEDS: Spironolactone 25mg tab ORAL SCH (08:22)
[2017-09-01] MEDS: Lisinopril 10mg tab ORAL SCH (08:23)
--- NOTE | 2017-09-01 08:45 | Diagnostic Imaging Report ---
EXAM: XR Chest, 1 View CLINICAL HISTORY: INFECT TECHNIQUE: Frontal view of the chest. COMPARISON: 08/30/17. FINDINGS: Lungs: Vascular congestion appears similar to prior exam.. Pleural space: Unremarkable. No pneumothorax. Heart: Enlarged cardiac silhouette again noted. Mediastinum: Unremarkable. Bones/joints: Unremarkable. IMPRESSION: Stable appearance of enlarged cardiac silhouette with vascular congestion.
[2017-09-01 08:54] LABS: CHOLESTEROL 199 MG/DL (< 200); HDL CHOLESTEROL 43 MG/DL (40-60); TRIGLYCERIDES 180 MG/DL (30-150)
--- NOTE | 2017-09-01 11:47 | Infectious Diseases Prog Note ---
Assessment/Plan Assessment/Plan ASSESSMENT AND PLAN: 1. uri/bronchitis, doubt cap, ? uti, leukocytosis better, ? septic - clinically better - azithromycin for 5 days - day # 3/5 - rocephin x 1 day more then discontinue 2. 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 3. Past medical history is otherwise negative. 4. Social history is negative. 5. Family history is noncontributory. 6. Allergies are negative. 7. MAR was noted. 8. Case was discussed with RN. 9. Case was discussed with the patient. 10. Continue treatment per primary consultants. Subjective Constitutional: Denies: fever HEENT: Reports: congestion - less, other - less sputum production Respiratory: Denies: shortness of breath Cardiovascular: Denies: chest pain Gastrointestinal/Abdominal: Denies: nausea, vomiting, diarrhea Genitourinary: Denies: dysuria Neurologic: Denies: headache Psychiatric: Denies: depression Skin: Denies: rash Hematologic: Denies: bleeding Musculoskeletal: Denies: pain Allergies: Coded Allergies: No Known Allergies (Unverified , 08/30/17) Objective Vital Signs Last 24 Hour Vital Signs Date Time Temp Pulse Resp B/P (MAP) Pulse Ox O2 Delivery O2 Flow Rate FiO2 09/01/17 08:23 117/70 09/01/17 08:00 85 09/01/17 08:00 97.5 76 26 117/70 97 Room Air 97.5 09/01/17 04:00 98.1 90 26 147/76 97 Room Air 98.1 09/01/17 04:00 96 09/01/17 00:00 97.7 93 28 125/73 99 Room Air 97.7 09/01/17 00:00 97 08/31/17 20:00 93 08/31/17 20:00 96.8 85 20 117/71 97 96.8 08/31/17 16:00 97.7 86 20 122/82 99 Room Air 97.7 08/31/17 16:00 93 08/31/17 12:00 96 08/31/17 12:00 97.3 86 20 123/74 99 Room Air 97.3 Height (Feet): 5 Height (Inches): 10.00 Weight (Pounds): 282 General Appearance: no acute distress HEENT: normocephalic, atraumatic, anicteric, mucous membranes moist Respiratory/Chest: lungs clear, normal breath sounds, no respiratory distress, no accessory muscle use Cardiovascular: normal rate, regular rhythm, no gallop/murmur, no JVD Abdomen: normal bowel sounds, soft, non tender, no organomegaly, non distended Genitourinary: other - no galloway Extremities: no cyanosis Skin: no rash Neurologic/Psychiatric: feed adviser II-XII grossly normal, alert, oriented x 3, responsive Lymphatic: no neck adenopathy Musculoskeletal: no effusion Objective 09/01 - chest x-ray - COMPARISON: 08/30/17. FINDINGS: Lungs: Vascular congestion appears similar to prior exam.. Pleural space: Unremarkable. No pneumothorax. Heart: Enlarged cardiac silhouette again noted. Mediastinum: Unremarkable. Bones/joints: Unremarkable. IMPRESSION: Stable appearance of enlarged cardiac silhouette with vascular congestion. Microbiology Date/Time Source Procedure Growth Status 08/31/17 07:05 Blood Blood Culture - Preliminary NO GROWTH AFTER 24 HOURS Resulted 08/31/17 06:55 Blood Blood Culture - Preliminary NO GROWTH AFTER 24 HOURS Resulted Labs Test 08/30/17 00:33 08/30/17 00:45 08/30/17 11:05 08/31/17 07:05 White Blood Count 14.7 K/UL (4.8-10.8) 11.9 K/UL (4.8-10.8) 10.6 K/UL (4.8-10.8) Red Blood Count 5.74 M/UL (4.70-6.10) 5.92 M/UL (4.70-6.10) 5.80 M/UL (4.70-6.10) Hemoglobin 16.1 G/DL (14.2-18.0) 16.3 G/DL (14.2-18.0) 16.4 G/DL (14.2-18.0) Hematocrit 48.9 % (42.0-52.0) 50.8 % (42.0-52.0) 49.4 % (42.0-52.0) Mean Corpuscular Volume 85 FL (80-99) 86 FL (80-99) 85 FL (80-99) Mean Corpuscular Hemoglobin 28.1 PG (27.0-31.0) 27.5 PG (27.0-31.0) 28.2 PG (27.0-31.0) Mean Corpuscular Hemoglobin Concent 32.9 G/DL (32.0-36.0) 32.0 G/DL (32.0-36.0) 33.2 G/DL (32.0-36.0) Red Cell Distribution Width 13.7 % (11.6-14.8) 13.9 % (11.6-14.8) 14.0 % (11.6-14.8) Platelet Count 269 K/UL (150-450) 289 K/UL (150-450) 243 K/UL (150-450) Mean Platelet Volume 7.3 FL (6.5-10.1) 7.7 FL (6.5-10.1) 6.9 FL (6.5-10.1) Neutrophils (%) (Auto) 75.6 % (45.0-75.0) 67.2 % (45.0-75.0) 64.2 % (45.0-75.0) Lymphocytes (%) (Auto) 15.1 % (20.0-45.0) 20.6 % (20.0-45.0) 27.6 % (20.0-45.0) Monocytes (%) (Auto) 7.4 % (1.0-10.0) 9.5 % (1.0-10.0) 5.0 % (1.0-10.0) Eosinophils (%) (Auto) 1.0 % (0.0-3.0) 1.7 % (0.0-3.0) 1.8 % (0.0-3.0) Basophils (%) (Auto) 0.9 % (0.0-2.0) 1.0 % (0.0-2.0) 1.4 % (0.0-2.0) Sodium Level 137 MMOL/L (136-145) 137 MMOL/L (136-145) Potassium Level 4.4 MMOL/L (3.5-5.1) 4.2 MMOL/L (3.5-5.1) Chloride Level 103 MMOL/L (98-107) 103 MMOL/L (98-107) Carbon Dioxide Level 26 MMOL/L (21-32) 25 MMOL/L (21-32) Anion Gap 8 mmol/L (5-15) 9 mmol/L (5-15) Blood Urea Nitrogen 16 mg/dL (7-18) 18 mg/dL (7-18) Creatinine 1.1 MG/DL (0.55-1.30) 1.0 MG/DL (0.55-1.30) Estimat Glomerular Filtration Rate > 60 mL/min (>60) > 60 mL/min (>60) Glucose Level 122 MG/DL (74-106) 113 MG/DL (74-106) Calcium Level 9.2 MG/DL (8.5-10.1) 9.1 MG/DL (8.5-10.1) Total Bilirubin 0.4 MG/DL (0.2-1.0) Aspartate Amino Transf (AST/SGOT) 34 U/L (15-37) Alanine Aminotransferase (ALT/SGPT) 59 U/L (12-78) Alkaline Phosphatase 103 U/L (46-116) Total Creatine Kinase 97 U/L (26-308) Creatine Kinase MB 2.2 NG/ML (0.0-3.6) Creatine Kinase MB Relative Index 2.2 Troponin I 0.024 ng/mL (0.000-0.056) 0.028 ng/mL (0.000-0.056) 0.045 ng/mL (0.000-0.056) Pro-B-Type Natriuretic Peptide 1239 pg/mL (0-125) Total Protein 7.6 G/DL (6.4-8.2) Albumin 3.5 G/DL (3.4-5.0) Globulin 4.1 g/dL Albumin/Globulin Ratio 0.9 (1.0-2.7) Urine Color Yellow Urine Appearance Clear Urine pH 5 (4.5-8.0) Urine Specific [place] 1.025 (1.005-1.035) Urine Protein 3+ (NEGATIVE) Urine Glucose (UA) Negative (NEGATIVE) Urine Ketones Negative (NEGATIVE) Urine Occult Blood Negative (NEGATIVE) Urine Nitrite Negative (NEGATIVE) Urine Bilirubin Negative (NEGATIVE) Urine Urobilinogen Normal MG/DL (0.0-1.0) Urine Leukocyte Esterase 1+ (NEGATIVE) Urine RBC 0-2 /HPF (0 - 0) Urine WBC 5-10 /HPF (0 - 0) Urine Squamous Epithelial Cells None /LPF (NONE/OCC) Urine Bacteria Few /HPF (NONE) Urine Sperm Few /LPF (NONE) Urine Opiates Screen Negative (NEGATIVE) Urine Barbiturates Screen Negative (NEGATIVE) Phencyclidine (PCP) Screen Negative (NEGATIVE) Urine Amphetamines Screen Negative (NEGATIVE) Urine Benzodiazepines Screen Negative (NEGATIVE) Urine Cocaine Screen Negative (NEGATIVE) Urine Marijuana (THC) Screen Negative (NEGATIVE) Hemoglobin A1c 6.9 % (4.3-6.0) Triglycerides Level 204 MG/DL (30-150) Cholesterol Level 206 MG/DL (< 200) LDL Cholesterol 144 mg/dL (<100) HDL Cholesterol 40 MG/DL (40-60) Cholesterol/HDL Ratio 5.2 (3.3-4.4) Thyroid Stimulating Hormone (TSH) 2.300 uiU/mL (0.358-3.740) Magnesium Level 2.0 MG/DL (1.8-2.4) Test 09/01/17 07:00 Troponin I 0.045 ng/mL (0.000-0.056) Pro-B-Type Natriuretic Peptide 940 pg/mL (0-125) Triglycerides Level 180 MG/DL (30-150) Cholesterol Level 199 MG/DL (< 200) LDL Cholesterol 142 mg/dL (<100) HDL Cholesterol 43 MG/DL (40-60) Cholesterol/HDL Ratio 4.6 (3.3-4.4) Laboratory Tests Test 09/01/17 07:00 Troponin I 0.045 ng/mL (0.000-0.056) Pro-B-Type Natriuretic Peptide 940 pg/mL (0-125) H Triglycerides Level 180 MG/DL (30-150) H Cholesterol Level 199 MG/DL (< 200) LDL Cholesterol 142 mg/dL (<100) H HDL Cholesterol 43 MG/DL (40-60) Cholesterol/HDL Ratio 4.6 (3.3-4.4) H Current Medications Medications (Trade) Dose Ordered Sig/Jane Route PRN Reason Start Time Stop Time Status Last Admin Dose Admin Acetaminophen (Tylenol) 650 mg Q4H PRN ORAL Mild Pain/Temp > 100.5 08/30/17 02:45 09/29/17 02:44 Acetaminophen/ Hydrocodone Bitart ([place] 5/325) 1 tab Q6H PRN ORAL For moderate to severe pain 08/30/17 11:12 09/06/17 11:11 Aspirin (ASA) 81 mg DAILY NG 08/30/17 09:00 09/29/17 08:59 09/01/17 08:21 Azithromycin (Zithromax) 250 mg DAILY ORAL 08/31/17 09:00 09/04/17 08:59 09/01/17 08:22 Ceftriaxone Sodium 1 gm/ Dextrose 110 ml @ 220 mls/hr Q24H IVPB 08/30/17 16:00 09/06/17 15:59 08/31/17 15:20 Dextrose (Dextrose 50%) 25 ml STAT PRN IV Hypoglycemia 08/30/17 02:45 09/29/17 02:44 Dextrose (Dextrose 50%) 50 ml STAT PRN IV Hypoglycemia 08/30/17 02:45 09/29/17 02:44 Furosemide (Lasix) 40 mg DAILY IV 09/01/17 09:00 10/01/17 08:59 09/01/17 08:23 Heparin Sodium (Porcine) (Heparin 5000 units/ml) 5,000 units EVERY 12 HOURS SUBQ 08/30/17 09:00 09/29/17 08:59 09/01/17 08:20 Lisinopril (Zestril) 10 mg DAILY ORAL 09/01/17 09:00 10/01/17 08:59 09/01/17 08:23 Ondansetron HCl (Zofran ODT) 4 mg Q6H PRN ORAL Nausea & Vomiting 08/30/17 02:45 09/29/17 02:44 Spironolactone (Aldactone) 25 mg DAILY ORAL 09/01/17 09:00 10/01/17 08:59 09/01/17 08:22 Gerri Chery MD September 01, 2017 11:46
[2017-09-01 12:01] VITALS: BP 125/72
[2017-09-01] MEDS: cefTRIAXone 1 GM in D5W 110 ML IVPB SCH (15:05)
[2017-09-01 16:00] VITALS: BP 111/62
--- NOTE | 2017-09-01 17:19 | Internal Med Progress Note ---
Subjective Physician Name Royce Sesay Attending Physician Von Hummel M.D. Current Medications Medications (Trade) Dose Ordered Sig/Jane Route PRN Reason Start Time Stop Time Status Last Admin Dose Admin Acetaminophen (Tylenol) 650 mg Q4H PRN ORAL Mild Pain/Temp > 100.5 08/30/17 02:45 09/29/17 02:44 Acetaminophen/ Hydrocodone Bitart ([place] 5/325) 1 tab Q6H PRN ORAL For moderate to severe pain 08/30/17 11:12 09/06/17 11:11 Aspirin (ASA) 81 mg DAILY NG 08/30/17 09:00 09/29/17 08:59 09/01/17 08:21 Azithromycin (Zithromax) 250 mg DAILY ORAL 08/31/17 09:00 09/04/17 08:59 09/01/17 08:22 Ceftriaxone Sodium 1 gm/ Dextrose 110 ml @ 220 mls/hr Q24H IVPB 08/30/17 16:00 09/06/17 15:59 09/01/17 15:05 Dextrose (Dextrose 50%) 25 ml STAT PRN IV Hypoglycemia 08/30/17 02:45 09/29/17 02:44 Dextrose (Dextrose 50%) 50 ml STAT PRN IV Hypoglycemia 08/30/17 02:45 09/29/17 02:44 Furosemide (Lasix) 40 mg DAILY IV 09/01/17 09:00 10/01/17 08:59 09/01/17 08:23 Heparin Sodium (Porcine) (Heparin 5000 units/ml) 5,000 units EVERY 12 HOURS SUBQ 08/30/17 09:00 09/29/17 08:59 09/01/17 08:20 Lisinopril (Zestril) 10 mg DAILY ORAL 09/01/17 09:00 10/01/17 08:59 09/01/17 08:23 Ondansetron HCl (Zofran ODT) 4 mg Q6H PRN ORAL Nausea & Vomiting 08/30/17 02:45 09/29/17 02:44 Spironolactone (Aldactone) 25 mg DAILY ORAL 09/01/17 09:00 10/01/17 08:59 09/01/17 08:22 Allergies: Coded Allergies: No Known Allergies (Unverified , 08/30/17) All Systems: reviewed and negative except above Subjective patient with episodes of weakness in his knees. Noted some bilateral leg numbnesss Objective Last Vital Signs Date Time Temp Pulse Resp B/P (MAP) Pulse Ox O2 Delivery O2 Flow Rate FiO2 09/01/17 16:00 83 09/01/17 12:01 97.4 20 125/72 97 Room Air 97.4 General Appearance: no apparent distress, alert EENT: PERRL/EOMI, normal ENT inspection Neck: non-tender, normal alignment Cardiovascular: normal rate, regular rhythm Respiratory/Chest: chest wall non-tender, lungs clear Abdomen: normal bowel sounds Extremities: non-tender Neurologic: no motor/sensory deficits Laboratory Tests Test 09/01/17 07:00 Troponin I 0.045 ng/mL (0.000-0.056) Pro-B-Type Natriuretic Peptide 940 pg/mL (0-125) H Triglycerides Level 180 MG/DL (30-150) H Cholesterol Level 199 MG/DL (< 200) LDL Cholesterol 142 mg/dL (<100) H HDL Cholesterol 43 MG/DL (40-60) Cholesterol/HDL Ratio 4.6 (3.3-4.4) H Microbiology Date/Time Source Procedure Growth Status 08/31/17 07:05 Blood Blood Culture - Preliminary NO GROWTH AFTER 24 HOURS Resulted 08/31/17 06:55 Blood Blood Culture - Preliminary NO GROWTH AFTER 24 HOURS Resulted Intake and Output 08/31/17 09/01/17 19:00 07:00 Intake Total 360 ml Balance 360 ml Intake Oral 360 ml # Voids 1 Assessment/Plan Problem List: (1) Cardiomyopathy (2) Near syncope (3) Morbid obesity with BMI of 40.0-44.9, adult (4) CHF (congestive heart failure) (5) Cardiomegaly (6) UTI (urinary tract infection) Assessment/Plan Assessment/Plan - Cardiology and ID consulted - pulmonary consulted - empiric IV azithromycin and ceftriaxone for possible PNA/UTI coverage - CXR showing mild interstitial congestion - Trend WBC - syncope workup: trops x 3, - continue with tele monitor - f/u TTE - EKG showing NSR with RBBB - pain control and supportive care Royce Sesay M.D. September 01, 2017 17:19
[2017-09-01 20:00] VITALS: BP 124/72
[2017-09-02] VITALS: BP 108/61
[2017-09-02 04:00] VITALS: BP 106/61
[2017-09-02 08:00] VITALS: BP 96/56
[2017-09-02] MEDS: Lisinopril 10mg tab ORAL SCH (09:00)
[2017-09-02] MEDS: Spironolactone 25mg tab ORAL SCH (09:00)
[2017-09-02] MEDS: Aspirin Baby 81mg NG SCH (09:10)
[2017-09-02] MEDS: Azithromycin 250mg tab ORAL SCH (09:10)
[2017-09-02] MEDS: Heparin 5000 units/ml inj SUBQ SCH ×2 (09:12→21:00)
--- NOTE | 2017-09-02 10:30 | Pulmonology Progress Note ---
Assessment/Plan Assessment/Plan DATE OF VISIT: 09/01/2017 PULMONARY FOLLOW UP HISTORY OF PRESENT ILLNESS: The patient is a 26-year-old male with history of transposition of the great vessels, status post repair as an , who has been generally healthy as an adult, who presented with syncope overnight. For the past 3 to 4 days, he has been having some cough and congestion, but he states he has been keeping himself hydrated. Yesterday, he had an episode where he felt chilled and then got lightheaded. He never lost consciousness. He came into the emergency department for further evaluation. He currently feels better. No dizziness. No headache or change in vision. His cough is better. No fevers, chills, rhinorrhea, nausea, vomiting, diarrhea, constipation, abdominal pain, or urinary complaints. He last saw the Adult Congenital Heart team in 2016 and has not followed up since. PAST MEDICAL HISTORY: Congenital heart disease, transposition of the great vessels, status post repair. PAST SURGICAL HISTORY: 1. Repair of transposition of the great vessels. 2. Appendectomy. ALLERGIES: No known drug allergies. MEDICATIONS: Prior to admission, medications none. Current medications reviewed. SOCIAL HISTORY: He denies any tobacco, alcohol, or drug use. FAMILY HISTORY: Noncontributory. REVIEW OF SYSTEMS: Negative other than history of present illness. PHYSICAL EXAMINATION: VITAL SIGNS: Temperature 98.4, pulse 89, blood pressure 130/76, respiratory rate 18. GENERAL: He is an obese male, in no acute distress. Awake, alert, and oriented x3. HEENT: Normocephalic and atraumatic. Oropharynx is clear with moist mucous membranes. Mallampati score 4. CHEST: Clear. HEART: Regular. ABDOMEN: Benign. NEUROLOGIC: Exam is nonfocal. ANCILLARY DATA: White count 14.7, hemoglobin 16.1, and platelet count 269,000. Sodium 137, potassium 4.4, chloride 102, bicarbonate 26, BUN 16, creatinine 1.1, glucose 122, calcium 9.2. Total bilirubin 0.4, AST 34, ALT 59, alkaline phosphatase 103. CK 97. BNP 1239. U-tox negative. Urinalysis, 3+ protein, 1+ LE, 0 to 2 red, 5 to 10 white. 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 Possible URI versus bronchitis. He had an elevated BNP in the ER and mildly edematous on exam and received 1 dose of Lasix. I will be cautious with over-diuresis, however. I suspect the etiology of the syncope is secondary to his recent respiratory illness, but given his history of congenital heart disease and the fact that he has been lost to follow up, full cardiac workup is underway. PROBLEM LIST: 1. Syncope. 2. Respiratory illness, URI versus bronchitis. 3. Transposition of the great vessels, status post repair as a child. 4. Component of decompensated heart failure. 5. 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 6. Leukocytosis, likely secondary to respiratory illness and possible UTI. TREATMENT PLAN: 1. Optimize pulmonary hygiene/mobilize as tolerated. 2. Monitor volumes. 3. Start azithromycin p.o. 4. Follow up urine culture. 5. Mucinex and p.r.n. Robitussin. 6. Follow up echocardiogram. 7. Cardiology evaluation. 8. DVT prophylaxis. Heparin subcutaneous. 9. The patient needs to follow up with Cardiomyopathy Clinic or Adult Congenital Heart Disease program after discharge. 10. Patient should have a sleep study. 11. Weight-loss diet. 12. Exercise discussed with the patient. Patient seen on 09/01/2017 Subjective Allergies: Coded Allergies: No Known Allergies (Unverified , 08/30/17) Objective Last 24 Hour Vital Signs Date Time Temp Pulse Resp B/P (MAP) Pulse Ox O2 Delivery O2 Flow Rate FiO2 09/02/17 09:00 96/56 09/02/17 08:00 97.0 74 18 96/56 97 Room Air 97.0 09/02/17 07:10 90 09/02/17 07:05 74 09/02/17 07:00 77 09/02/17 04:00 98.4 79 20 106/61 96 Room Air 98.4 09/02/17 04:00 87 09/02/17 00:00 75 09/02/17 00:00 97.6 76 19 108/61 97 Room Air 97.6 09/01/17 20:00 96.9 93 20 124/72 97 Room Air 96.9 09/01/17 20:00 90 09/01/17 16:00 83 09/01/17 16:00 97.7 86 20 111/62 97 Room Air 97.7 09/01/17 12:01 97.4 87 20 125/72 97 Room Air 97.4 09/01/17 12:00 82 Intake and Output 09/01/17 09/02/17 19:00 07:00 Intake Total 810 ml Balance 810 ml Intake Oral 810 ml # Voids 1 2 Microbiology Date/Time Source Procedure Growth Status 08/31/17 07:05 Blood Blood Culture - Preliminary NO GROWTH AFTER 24 HOURS Resulted 08/31/17 06:55 Blood Blood Culture - Preliminary NO GROWTH AFTER 24 HOURS Resulted Current Medications Medications (Trade) Dose Ordered Sig/Jane Route PRN Reason Start Time Stop Time Status Last Admin Dose Admin Acetaminophen (Tylenol) 650 mg Q4H PRN ORAL Mild Pain/Temp > 100.5 08/30/17 02:45 09/29/17 02:44 Acetaminophen/ Hydrocodone Bitart ([place] 5/325) 1 tab Q6H PRN ORAL For moderate to severe pain 08/30/17 11:12 09/06/17 11:11 Aspirin (ASA) 81 mg DAILY NG 08/30/17 09:00 09/29/17 08:59 09/02/17 09:10 Azithromycin (Zithromax) 250 mg DAILY ORAL 08/31/17 09:00 09/04/17 08:59 09/02/17 09:10 Ceftriaxone Sodium 1 gm/ Dextrose 110 ml @ 220 mls/hr Q24H IVPB 08/30/17 16:00 09/06/17 15:59 09/01/17 15:05 Dextrose (Dextrose 50%) 25 ml STAT PRN IV Hypoglycemia 08/30/17 02:45 09/29/17 02:44 Dextrose (Dextrose 50%) 50 ml STAT PRN IV Hypoglycemia 08/30/17 02:45 09/29/17 02:44 Furosemide (Lasix) 40 mg DAILY IV 09/01/17 09:00 10/01/17 08:59 09/02/17 09:10 Heparin Sodium (Porcine) (Heparin 5000 units/ml) 5,000 units EVERY 12 HOURS SUBQ 08/30/17 09:00 09/29/17 08:59 09/02/17 09:12 Lisinopril (Zestril) 10 mg DAILY ORAL 09/01/17 09:00 10/01/17 08:59 09/01/17 08:23 Ondansetron HCl (Zofran ODT) 4 mg Q6H PRN ORAL Nausea & Vomiting 08/30/17 02:45 09/29/17 02:44 Spironolactone (Aldactone) 25 mg DAILY ORAL 09/01/17 09:00 10/01/17 08:59 09/01/17 08:22 Antonio Salguero MD September 02, 2017 10:30
[2017-09-02 12:00] VITALS: BP_SYST 118; BP_SYST 124; BP_DIAS 70; BP_DIAS 72
--- NOTE | 2017-09-02 12:08 | Cardiac Electrophysiology PN ---
Assessment/Plan Assessment/Plan 1. Newly diagnosed severe cardiomyopathy, ejection fraction only 30% to 35%. Started on lisinopril, Aldactone, and Lasix. We will Hold off on Coreg in view of the patient's episodes of [place]itz type 2 and intermittent CHB. heart block. Awaiting transfer for cardiac catheterization for further evaluation of his coronaries. 2. 9 beats of NSVT.After cardiac cath may need EP study. 3. Episode of [place] type 2 heart block and intermittent complete right bundle- branch block as well as right axis deviation and borderline first-degree AV block. 4. Status post transposition of great artery surgery. 5. Possible pneumonia, on ceftriaxone and azithromycin. DW RN and Tania Subjective Subjective No chest pain or SOB.Had transient CHB again. Also had episode of fall during the episode. Objective Last 24 Hour Vital Signs Date Time Temp Pulse Resp B/P (MAP) Pulse Ox O2 Delivery O2 Flow Rate FiO2 09/02/17 09:00 96/56 09/02/17 08:00 97.0 74 18 96/56 97 Room Air 97.0 09/02/17 08:00 78 09/02/17 07:10 90 09/02/17 07:05 74 09/02/17 07:00 77 09/02/17 04:00 98.4 79 20 106/61 96 Room Air 98.4 09/02/17 04:00 87 09/02/17 00:00 75 09/02/17 00:00 97.6 76 19 108/61 97 Room Air 97.6 09/01/17 20:00 96.9 93 20 124/72 97 Room Air 96.9 09/01/17 20:00 90 09/01/17 16:00 83 09/01/17 16:00 97.7 86 20 111/62 97 Room Air 97.7 09/01/17 12:01 97.4 87 20 125/72 97 Room Air 97.4 09/01/17 12:00 82 Intake and Output 09/01/17 09/02/17 19:00 07:00 Intake Total 810 ml Balance 810 ml Intake Oral 810 ml # Voids 1 2 Microbiology Date/Time Source Procedure Growth Status 08/31/17 07:05 Blood Blood Culture - Preliminary NO GROWTH AFTER 24 HOURS Resulted 08/31/17 06:55 Blood Blood Culture - Preliminary NO GROWTH AFTER 24 HOURS Resulted Objective HEAD AND NECK: Mild JVD. LUNGS: Decreased breath sounds. CARDIOVASCULAR: Regular S1 and S2 with no gallop or murmur.Sternotomy intact ABDOMEN: Soft and obese. EXTREMITIES: 1+ pitting edema. George Mares MD September 02, 2017 12:08
[2017-09-02 12:59] LABS: ANION GAP 8 mmol/L (5-15); BLOOD UREA NITROGEN 22 mg/dL (7-18); CALCIUM 9.6 MG/DL (8.5-10.1); CARBON DIOXIDE 24 MMOL/L (21-32); CHLORIDE 100 MMOL/L (98-107); CREATININE 1.1 MG/DL (0.55-1.30); SODIUM 132 MMOL/L (136-145)
[2017-09-02 13:01] LABS: BASOPHILS % (AUTO) 1.4 % (0.0-2.0); HEMATOCRIT 55.3 % (42.0-52.0); HEMOGLOBIN 17.8 G/DL (14.2-18.0); LYMPHOCYTES % (AUTO) 17.8 % (20.0-45.0); MEAN CORPUSCULAR VOLUME 85 FL (80-99); MONOCYTES % (AUTO) 6.5 % (1.0-10.0); NEUTROPHILS % (AUTO) 73.3 % (45.0-75.0); PLATELET COUNT 307 K/UL (150-450); RED BLOOD COUNT 6.48 M/UL (4.70-6.10); RED CELL DISTRIBUTION WIDTH 13.9 % (11.6-14.8); WHITE BLOOD COUNT 13.4 K/UL (4.8-10.8)
[2017-09-02 16:00] VITALS: BP 134/80
[2017-09-02] MEDS: cefTRIAXone 1 GM in D5W 110 ML IVPB SCH (16:17)
--- NOTE | 2017-09-02 19:40 | Infectious Diseases Prog Note ---
Assessment/Plan Assessment/Plan ASSESSMENT AND PLAN: 1. uri/bronchitis, doubt cap, ? uti, leukocytosis, ? septic, blood culture negative, chest x-ray negative - clinically better but leukocytosis recurrent ? reason - azithromycin for 5 days - day # 4/5 - discontinue rocephin - f/u on labs, recheck ua 2. 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 3. Past medical history is otherwise negative. 4. Social history is negative. 5. Family history is noncontributory. 6. Allergies are negative. 7. MAR was noted. 8. Case was discussed with RN. 9. Case was discussed with the patient. 10. Continue treatment per primary consultants. Subjective Constitutional: Denies: fever HEENT: Denies: congestion Respiratory: Denies: shortness of breath Cardiovascular: Denies: chest pain Gastrointestinal/Abdominal: Denies: nausea, vomiting, diarrhea Genitourinary: Denies: dysuria Psychiatric: Denies: depression Skin: Denies: rash Musculoskeletal: Denies: pain Allergies: Coded Allergies: No Known Allergies (Unverified , 08/30/17) Objective Vital Signs Last 24 Hour Vital Signs Date Time Temp Pulse Resp B/P (MAP) Pulse Ox O2 Delivery O2 Flow Rate FiO2 09/02/17 16:00 104 09/02/17 16:00 97.7 99 18 134/80 98 Room Air 97.7 09/02/17 12:00 89 09/02/17 12:00 96.1 91 18 118/70 98 Room Air 96.1 09/02/17 09:00 96/56 09/02/17 08:00 97.0 74 18 96/56 97 Room Air 97.0 09/02/17 08:00 78 09/02/17 07:10 90 09/02/17 07:05 74 09/02/17 07:00 77 09/02/17 04:00 98.4 79 20 106/61 96 Room Air 98.4 09/02/17 04:00 87 09/02/17 00:00 75 09/02/17 00:00 97.6 76 19 108/61 97 Room Air 97.6 09/01/17 20:00 96.9 93 20 124/72 97 Room Air 96.9 5/27/18 20:00 90 Height (Feet): 5 Height (Inches): 10.00 Weight (Pounds): 282 General Appearance: no acute distress HEENT: normocephalic, atraumatic, anicteric, mucous membranes moist Respiratory/Chest: lungs clear, normal breath sounds, no respiratory distress, no accessory muscle use Cardiovascular: normal rate, regular rhythm, regularly irregular, no gallop/ murmur, no JVD Abdomen: normal bowel sounds, soft, non tender, no organomegaly, non distended Genitourinary: other - no galloway Extremities: no cyanosis Skin: no rash 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 FINDINGS: Lungs: Vascular congestion appears similar to prior exam.. Pleural space: Unremarkable. No pneumothorax. Heart: Enlarged cardiac silhouette again noted. Mediastinum: Unremarkable. Bones/joints: Unremarkable. IMPRESSION: Stable appearance of enlarged cardiac silhouette with vascular congestion. Microbiology Date/Time Source Procedure Growth Status 08/31/17 07:05 Blood Blood Culture - Preliminary NO GROWTH AFTER 24 HOURS Resulted 08/31/17 06:55 Blood Blood Culture - Preliminary NO GROWTH AFTER 24 HOURS Resulted Laboratory Tests Test 09/02/17 12:27 09/02/17 16:14 White Blood Count 13.4 K/UL (4.8-10.8) H Red Blood Count 6.48 M/UL (4.70-6.10) H Hemoglobin 17.8 G/DL (14.2-18.0) Hematocrit 55.3 % (42.0-52.0) H Mean Corpuscular Volume 85 FL (80-99) Mean Corpuscular Hemoglobin 27.4 PG (27.0-31.0) Mean Corpuscular Hemoglobin Concent 32.1 G/DL (32.0-36.0) Red Cell Distribution Width 13.9 % (11.6-14.8) Platelet Count 307 K/UL (150-450) Mean Platelet Volume 7.2 FL (6.5-10.1) Neutrophils (%) (Auto) 73.3 % (45.0-75.0) Lymphocytes (%) (Auto) 17.8 % (20.0-45.0) L Monocytes (%) (Auto) 6.5 % (1.0-10.0) Eosinophils (%) (Auto) 1.0 % (0.0-3.0) Basophils (%) (Auto) 1.4 % (0.0-2.0) Sodium Level 132 MMOL/L (136-145) L Potassium Level 4.0 MMOL/L (3.5-5.1) Chloride Level 100 MMOL/L (98-107) Carbon Dioxide Level 24 MMOL/L (21-32) Anion Gap 8 mmol/L (5-15) Blood Urea Nitrogen 22 mg/dL (7-18) H Creatinine 1.1 MG/DL (0.55-1.30) Estimat Glomerular Filtration Rate > 60 mL/min (>60) Glucose Level 128 MG/DL (74-106) H Calcium Level 9.6 MG/DL (8.5-10.1) Magnesium Level 2.0 MG/DL (1.8-2.4) Urine Opiates Screen Negative (NEGATIVE) Urine Barbiturates Screen Negative (NEGATIVE) Phencyclidine (PCP) Screen Negative (NEGATIVE) Urine Amphetamines Screen Negative (NEGATIVE) Urine Benzodiazepines Screen Negative (NEGATIVE) Urine Cocaine Screen Negative (NEGATIVE) Urine Marijuana (THC) Screen Negative (NEGATIVE) Current Medications Medications (Trade) Dose Ordered Sig/Jane Route PRN Reason Start Time Stop Time Status Last Admin Dose Admin Acetaminophen (Tylenol) 650 mg Q4H PRN ORAL Mild Pain/Temp > 100.5 08/30/17 02:45 09/29/17 02:44 Acetaminophen/ Hydrocodone Bitart ([place] 5/325) 1 tab Q6H PRN ORAL For moderate to severe pain 08/30/17 11:12 09/06/17 11:11 Aspirin (ASA) 81 mg DAILY NG 08/30/17 09:00 09/29/17 08:59 09/02/17 09:10 Azithromycin (Zithromax) 250 mg DAILY ORAL 08/31/17 09:00 09/04/17 08:59 09/02/17 09:10 Ceftriaxone Sodium 1 gm/ Dextrose 110 ml @ 220 mls/hr Q24H IVPB 08/30/17 16:00 09/06/17 15:59 09/02/17 16:17 Dextrose (Dextrose 50%) 25 ml STAT PRN IV Hypoglycemia 08/30/17 02:45 09/29/17 02:44 Dextrose (Dextrose 50%) 50 ml STAT PRN IV Hypoglycemia 08/30/17 02:45 09/29/17 02:44 Furosemide (Lasix) 40 mg DAILY IV 09/01/17 09:00 10/01/17 08:59 09/02/17 09:10 Heparin Sodium (Porcine) (Heparin 5000 units/ml) 5,000 units EVERY 12 HOURS SUBQ 08/30/17 09:00 09/29/17 08:59 09/02/17 09:12 Lisinopril (Zestril) 10 mg DAILY ORAL 09/01/17 09:00 10/01/17 08:59 09/01/17 08:23 Ondansetron HCl (Zofran ODT) 4 mg Q6H PRN ORAL Nausea & Vomiting 08/30/17 02:45 09/29/17 02:44 Spironolactone (Aldactone) 25 mg DAILY ORAL 09/01/17 09:00 10/01/17 08:59 09/01/17 08:22 Gerri Chery MD September 02, 2017 19:40
[2017-09-02 20:00] VITALS: BP 130/76
--- NOTE | 2017-09-02 22:56 | General Progress Note ---
Assessment/Plan Problem List: (1) UTI (urinary tract infection) ICD Codes: N39.0 - Urinary tract infection, site not specified SNOMED: 01372146 (2) Cardiomegaly ICD Codes: I51.7 - Cardiomegaly SNOMED: 8178934 (3) Near syncope ICD Codes: R55 - Syncope and collapse SNOMED: 723112564, 110185969 (4) Morbid obesity with BMI of 40.0-44.9, adult ICD Codes: E66.01 - Morbid (severe) obesity due to excess calories; Z68.41 - Body mass index (BMI) 40.0-44.9, adult SNOMED: 929093003, 293780022 (5) Cardiomyopathy ICD Codes: I42.9 - Cardiomyopathy, unspecified SNOMED: 30600396, 033851045 Qualifiers: Qualified Codes: I42.9 - Cardiomyopathy, unspecified (6) CHF (congestive heart failure) ICD Codes: I50.9 - Heart failure, unspecified SNOMED: 74382771, 601264358 Qualifiers: Qualified Codes: I50.9 - Heart failure, unspecified Status: stable, progressing Assessment/Plan - Cardiology and ID consulted, appreciate rec's - empiric IV ceftriaxone for UTI - f/u urine cx - CXR showing mild interstitial congestion - Trend WBC - syncope workup: trops x 3 negative, tele monitor, TTE (EF 30-35%) - check TSH, lipid panel, A1c - EKG showing NSR with RBBB - pain control and supportive care - pending transfer to higher level of care for cardiac cath DVT Prophylaxis: SCD, HSQ Code Status: Full Hospital Classification Declaration: Based on this initial evaluation, and depending on the patient's clinical course, I anticipate that this patient will require hospitalization for 2-3 days for syncope and close respiratory/ hemodynamic monitoring. Disposition: Once the patient is stable to leave the hospital, I anticipate the patient will likely be discharged to the following environment: home I spent [] minutes on this patient's case, and 33 minutes were dedicated to counseling and/or care coordination. Discussed with patient/family, nursing staff, SW/CM, cardiology, and ID regarding clinical status, treatment course, and disposition planning. Time of note may not reflect time of encounter. Subjective Date patient seen: September 02, 2017 Time patient seen: 12:36 Allergies: Coded Allergies: No Known Allergies (Unverified , 08/30/17) Subjective - AF, HDS - denies cp, sob - pending transfer to higher level of care for cardiac cath procedure. patient agreeable Objective Last 24 Hour Vital Signs Date Time Temp Pulse Resp B/P (MAP) Pulse Ox O2 Delivery O2 Flow Rate FiO2 09/02/17 16:00 104 09/02/17 16:00 97.7 99 18 134/80 98 Room Air 97.7 09/02/17 12:00 89 09/02/17 12:00 96.1 91 18 118/70 98 Room Air 96.1 09/02/17 09:00 96/56 09/02/17 08:00 97.0 74 18 96/56 97 Room Air 97.0 09/02/17 08:00 78 09/02/17 07:10 90 09/02/17 07:05 74 09/02/17 07:00 77 09/02/17 04:00 98.4 79 20 106/61 96 Room Air 98.4 09/02/17 04:00 87 09/02/17 00:00 75 09/02/17 00:00 97.6 76 19 108/61 97 Room Air 97.6 Intake and Output 09/01/17 09/02/17 19:00 07:00 Intake Total 810 ml Balance 810 ml Intake Oral 810 ml # Voids 1 2 Laboratory Tests 09/02/17 12:27: White Blood Count 13.4H, Red Blood Count 6.48H, Hemoglobin 17.8, Hematocrit 55.3H, Mean Corpuscular Volume 85, Mean Corpuscular Hemoglobin 27.4, Mean Corpuscular Hemoglobin Concent 32.1, Red Cell Distribution Width 13.9, Platelet Count 307, Mean Platelet Volume 7.2, Neutrophils (%) (Auto) 73.3, Lymphocytes (% ) (Auto) 17.8L, Monocytes (%) (Auto) 6.5, Eosinophils (%) (Auto) 1.0, Basophils (%) (Auto) 1.4, Sodium Level 132L, Potassium Level 4.0, Chloride Level 100, Carbon Dioxide Level 24, Anion Gap 8, Blood Urea Nitrogen 22H, Creatinine 1.1, Estimat Glomerular Filtration Rate > 60, Glucose Level 128H, Calcium Level 9.6, Magnesium Level 2.0 09/02/17 16:14: Urine Opiates Screen Negative, Urine Barbiturates Screen Negative, Phencyclidine (PCP) Screen Negative, Urine Amphetamines Screen Negative, Urine Benzodiazepines Screen Negative, Urine Cocaine Screen Negative, Urine Marijuana (THC) Screen Negative Height (Feet): 5 Height (Inches): 10.00 Weight (Pounds): 282 General Appearance: no apparent distress, alert, morbidly obese EENT: PERRL/EOMI, normal ENT inspection Neck: non-tender, normal alignment, supple Cardiovascular: normal peripheral pulses, normal rate, regular rhythm Respiratory/Chest: chest wall non-tender, lungs clear, normal breath sounds Abdomen: normal bowel sounds, non tender, soft Extremities: normal range of motion, non-tender 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
--- NOTE | 2017-09-02 23:40 | Pulmonology Progress Note ---
Assessment/Plan Assessment/Plan DATE OF VISIT: 09/02/2017 PULMONARY FOLLOW UP HISTORY OF PRESENT ILLNESS: The patient is a 26-year-old male with history of transposition of the great vessels, status post repair as an , who has been generally healthy as an adult, who presented with syncope overnight. For the past 3 to 4 days, he has been having some cough and congestion, but he states he has been keeping himself hydrated. Yesterday, he had an episode where he felt chilled and then got lightheaded. He never lost consciousness. He came into the emergency department for further evaluation. He currently feels better. No dizziness. No headache or change in vision. His cough is better. No fevers, chills, rhinorrhea, nausea, vomiting, diarrhea, constipation, abdominal pain, or urinary complaints. He last saw the Adult Congenital Heart team in 2016 and has not followed up since. No new complaints PAST MEDICAL HISTORY: Congenital heart disease, transposition of the great vessels, status post repair. PAST SURGICAL HISTORY: 1. Repair of transposition of the great vessels. 2. Appendectomy. ALLERGIES: No known drug allergies. MEDICATIONS: Prior to admission, medications none. Current medications reviewed. SOCIAL HISTORY: He denies any tobacco, alcohol, or drug use. FAMILY HISTORY: Noncontributory. REVIEW OF SYSTEMS: Negative other than history of present illness. PHYSICAL EXAMINATION: VITAL SIGNS: Temperature 98.4, pulse 89, blood pressure 130/76, respiratory rate 18. GENERAL: He is an obese male, in no acute distress. Awake, alert, and oriented x3. HEENT: Normocephalic and atraumatic. Oropharynx is clear with moist mucous membranes. Mallampati score 4. CHEST: Clear. HEART: Regular. ABDOMEN: Benign. NEUROLOGIC: Exam is nonfocal. ANCILLARY DATA: White count 14.7, hemoglobin 16.1, and platelet count 269,000. Sodium 137, potassium 4.4, chloride 102, bicarbonate 26, BUN 16, creatinine 1.1, glucose 122, calcium 9.2. Total bilirubin 0.4, AST 34, ALT 59, alkaline phosphatase 103. CK 97. BNP 1239. U-tox negative. Urinalysis, 3+ protein, 1+ LE, 0 to 2 red, 5 to 10 white. 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 Possible URI versus bronchitis. He had an elevated BNP in the ER and mildly edematous on exam and received 1 dose of Lasix. I will be cautious with over-diuresis, however. I suspect the etiology of the syncope is secondary to his recent respiratory illness, but given his history of congenital heart disease and the fact that he has been lost to follow up, full cardiac workup is underway. PROBLEM LIST: 1. Syncope. 2. Respiratory illness, URI versus bronchitis. 3. Transposition of the great vessels, status post repair as a child. 4. Component of decompensated heart failure. 5. 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 6. Leukocytosis, likely secondary to respiratory illness and possible UTI. TREATMENT PLAN: 1. Optimize pulmonary hygiene/mobilize as tolerated. 2. Monitor volumes. 3. Start azithromycin p.o. 4. Follow up urine culture. 5. Mucinex and p.r.n. Robitussin. 6. Follow up echocardiogram. 7. Cardiology evaluation. 8. DVT prophylaxis. Heparin subcutaneous. 9. The patient needs to follow up with Cardiomyopathy Clinic or Adult Congenital Heart Disease program after discharge. 10. Patient should have a sleep study. 11. Weight-loss diet. 12. Exercise discussed with the patient. Patient seen on 09/01/2017 Subjective Allergies: Coded Allergies: No Known Allergies (Unverified , 08/30/17) Objective Last 24 Hour Vital Signs Date Time Temp Pulse Resp B/P (MAP) Pulse Ox O2 Delivery O2 Flow Rate FiO2 09/02/17 20:00 90 09/02/17 20:00 97.2 65 20 130/76 98 Room Air 97.2 09/02/17 16:00 104 09/02/17 16:00 97.7 99 18 134/80 98 Room Air 97.7 09/02/17 12:00 89 09/02/17 12:00 96.1 91 18 118/70 98 Room Air 96.1 09/02/17 09:00 96/56 09/02/17 08:00 97.0 74 18 96/56 97 Room Air 97.0 09/02/17 08:00 78 09/02/17 07:10 90 09/02/17 07:05 74 09/02/17 07:00 77 09/02/17 04:00 98.4 79 20 106/61 96 Room Air 98.4 09/02/17 04:00 87 09/02/17 00:00 75 09/02/17 00:00 97.6 76 19 108/61 97 Room Air 97.6 Intake and Output 09/01/17 09/02/17 19:00 07:00 Intake Total 810 ml Balance 810 ml Intake Oral 810 ml # Voids 1 2 Microbiology Date/Time Source Procedure Growth Status 08/31/17 07:05 Blood Blood Culture - Preliminary NO GROWTH AFTER 24 HOURS Resulted 08/31/17 06:55 Blood Blood Culture - Preliminary NO GROWTH AFTER 24 HOURS Resulted Laboratory Tests 09/02/17 12:27: White Blood Count 13.4H, Red Blood Count 6.48H, Hemoglobin 17.8, Hematocrit 55.3H, Mean Corpuscular Volume 85, Mean Corpuscular Hemoglobin 27.4, Mean Corpuscular Hemoglobin Concent 32.1, Red Cell Distribution Width 13.9, Platelet Count 307, Mean Platelet Volume 7.2, Neutrophils (%) (Auto) 73.3, Lymphocytes (% ) (Auto) 17.8L, Monocytes (%) (Auto) 6.5, Eosinophils (%) (Auto) 1.0, Basophils (%) (Auto) 1.4, Sodium Level 132L, Potassium Level 4.0, Chloride Level 100, Carbon Dioxide Level 24, Anion Gap 8, Blood Urea Nitrogen 22H, Creatinine 1.1, Estimat Glomerular Filtration Rate > 60, Glucose Level 128H, Calcium Level 9.6, Magnesium Level 2.0 09/02/17 16:14: Urine Opiates Screen Negative, Urine Barbiturates Screen Negative, Phencyclidine (PCP) Screen Negative, Urine Amphetamines Screen Negative, Urine Benzodiazepines Screen Negative, Urine Cocaine Screen Negative, Urine Marijuana (THC) Screen Negative Current Medications Medications (Trade) Dose Ordered Sig/Jane Route PRN Reason Start Time Stop Time Status Last Admin Dose Admin Acetaminophen (Tylenol) 650 mg Q4H PRN ORAL Mild Pain/Temp > 100.5 08/30/17 02:45 09/29/17 02:44 Acetaminophen/ Hydrocodone Bitart ([place] 5/325) 1 tab Q6H PRN ORAL For moderate to severe pain 08/30/17 11:12 09/06/17 11:11 Aspirin (ASA) 81 mg DAILY NG 08/30/17 09:00 09/29/17 08:59 09/02/17 09:10 Azithromycin (Zithromax) 250 mg DAILY ORAL 08/31/17 09:00 09/04/17 08:59 09/02/17 09:10 Dextrose (Dextrose 50%) 25 ml STAT PRN IV Hypoglycemia 08/30/17 02:45 09/29/17 02:44 Dextrose (Dextrose 50%) 50 ml STAT PRN IV Hypoglycemia 08/30/17 02:45 09/29/17 02:44 Furosemide (Lasix) 40 mg DAILY IV 09/01/17 09:00 10/01/17 08:59 09/02/17 09:10 Heparin Sodium (Porcine) (Heparin 5000 units/ml) 5,000 units EVERY 12 HOURS SUBQ 08/30/17 09:00 09/29/17 08:59 09/02/17 09:12 Lisinopril (Zestril) 10 mg DAILY ORAL 09/01/17 09:00 10/01/17 08:59 09/01/17 08:23 Ondansetron HCl (Zofran ODT) 4 mg Q6H PRN ORAL Nausea & Vomiting 08/30/17 02:45 09/29/17 02:44 Spironolactone (Aldactone) 25 mg DAILY ORAL 09/01/17 09:00 10/01/17 08:59 09/01/17 08:22 Antonio Salguero MD September 02, 2017 23:40
[2017-09-03] VITALS: BP 120/81
[2017-09-03 04:00] VITALS: BP 112/77
[2017-09-03 04:39] LABS: APPEARANCE,URINE CLEAR; BILIRUBIN, URINE NEGATIVE (NEGATIVE); GLUCOSE, URINE (UA) NEGATIVE (NEGATIVE); KETONES,URINE NEGATIVE (NEGATIVE); LEUKOCYTE ESTERASE ,URINE NEGATIVE (NEGATIVE); NITRITE,URINE NEGATIVE (NEGATIVE); PH,URINE 5 (4.5-8.0); UROBILINOGEN,URINE NORMAL MG/DL (0.0-1.0)
[2017-09-03 05:05] LABS: COLOR,URINE YELLOW; PROTEIN,URINE NEGATIVE (NEGATIVE)
[2017-09-03 08:00] VITALS: BP 115/84
[2017-09-03] MEDS: Heparin 5000 units/ml inj SUBQ SCH (08:57)
[2017-09-03] MEDS: Spironolactone 25mg tab ORAL SCH (08:59)
[2017-09-03] MEDS: Aspirin Baby 81mg NG SCH (08:59)
[2017-09-03] MEDS: Lisinopril 10mg tab ORAL SCH (09:00)
[2017-09-03] MEDS: Azithromycin 250mg tab ORAL SCH (09:00)
--- NOTE | 2017-09-03 09:39 | Cardiac Electrophysiology PN ---
Assessment/Plan Assessment/Plan 1. Newly diagnosed severe cardiomyopathy, ejection fraction only 30% to 35%. Continue lisinopril, Aldactone, and Lasix. Hold off on Coreg in view of episodes of Mobitz type 2 and intermittent CHB. heart block. Awaiting transfer for cardiac catheterization 2. 9 beats of NSVT. After cardiac cath may need EP study. 3. Episode of Mobitz type 2 heart block and intermittent complete right bundle- branch block as well as right axis deviation and borderline first-degree AV block. 4. Status post transposition of great artery surgery. 5. Possible pneumonia, on ceftriaxone and azithromycin. MAURA RN Subjective Subjective No chest pain or SOB.Awaiting transfer for cardiac cath Objective Last 24 Hour Vital Signs Date Time Temp Pulse Resp B/P (MAP) Pulse Ox O2 Delivery O2 Flow Rate FiO2 09/03/17 09:00 115/84 09/03/17 04:00 98.0 88 19 112/77 100 Room Air 98.0 09/03/17 04:00 79 09/03/17 00:00 104 09/03/17 00:00 97.4 97 20 120/81 98 Room Air 97.4 09/02/17 20:00 90 09/02/17 20:00 97.2 65 20 130/76 98 Room Air 97.2 09/02/17 16:00 104 09/02/17 16:00 97.7 99 18 134/80 98 Room Air 97.7 09/02/17 12:00 89 09/02/17 12:00 96.1 91 18 118/70 98 Room Air 96.1 Intake and Output 09/02/17 09/03/17 19:00 07:00 Intake Total 1430 ml 340 ml Balance 1430 ml 340 ml Intake Oral 1320 ml 340 ml IV Total 110 ml # Voids 5 2 Laboratory Tests Test 09/02/17 12:27 09/02/17 16:14 09/03/17 03:30 White Blood Count 13.4 K/UL (4.8-10.8) H Red Blood Count 6.48 M/UL (4.70-6.10) H Hemoglobin 17.8 G/DL (14.2-18.0) Hematocrit 55.3 % (42.0-52.0) H Mean Corpuscular Volume 85 FL (80-99) Mean Corpuscular Hemoglobin 27.4 PG (27.0-31.0) Mean Corpuscular Hemoglobin Concent 32.1 G/DL (32.0-36.0) Red Cell Distribution Width 13.9 % (11.6-14.8) Platelet Count 307 K/UL (150-450) Mean Platelet Volume 7.2 FL (6.5-10.1) Neutrophils (%) (Auto) 73.3 % (45.0-75.0) Lymphocytes (%) (Auto) 17.8 % (20.0-45.0) L Monocytes (%) (Auto) 6.5 % (1.0-10.0) Eosinophils (%) (Auto) 1.0 % (0.0-3.0) Basophils (%) (Auto) 1.4 % (0.0-2.0) Sodium Level 132 MMOL/L (136-145) L Potassium Level 4.0 MMOL/L (3.5-5.1) Chloride Level 100 MMOL/L (98-107) Carbon Dioxide Level 24 MMOL/L (21-32) Anion Gap 8 mmol/L (5-15) Blood Urea Nitrogen 22 mg/dL (7-18) H Creatinine 1.1 MG/DL (0.55-1.30) Estimat Glomerular Filtration Rate > 60 mL/min (>60) Glucose Level 128 MG/DL (74-106) H Calcium Level 9.6 MG/DL (8.5-10.1) Magnesium Level 2.0 MG/DL (1.8-2.4) Urine Opiates Screen Negative (NEGATIVE) Urine Barbiturates Screen Negative (NEGATIVE) Phencyclidine (PCP) Screen Negative (NEGATIVE) Urine Amphetamines Screen Negative (NEGATIVE) Urine Benzodiazepines Screen Negative (NEGATIVE) Urine Cocaine Screen Negative (NEGATIVE) Urine Marijuana (THC) Screen Negative (NEGATIVE) Urine Color Yellow Urine Appearance Clear Urine pH 5 (4.5-8.0) Urine Specific [place] 1.020 (1.005-1.035) Urine Protein Negative (NEGATIVE) Urine Glucose (UA) Negative (NEGATIVE) Urine Ketones Negative (NEGATIVE) Urine Occult Blood Negative (NEGATIVE) Urine Nitrite Negative (NEGATIVE) Urine Bilirubin Negative (NEGATIVE) Urine Urobilinogen Normal MG/DL (0.0-1.0) Urine Leukocyte Esterase Negative (NEGATIVE) Objective HEAD AND NECK: Mild JVD. LUNGS: Decreased breath sounds. CARDIOVASCULAR: Regular S1 and S2 with no gallop or murmur.Sternotomy intact ABDOMEN: Soft and obese. EXTREMITIES: 1+ pitting edema. George Mares MD September 03, 2017 09:39
[2017-09-03 09:48] LABS: BASOPHILS % (AUTO) 0.9 % (0.0-2.0); EOSINOPHILS % (AUTO) 0.9 % (0.0-3.0); HEMATOCRIT 53.5 % (42.0-52.0); HEMOGLOBIN 17.4 G/DL (14.2-18.0); LYMPHOCYTES % (AUTO) 18.9 % (20.0-45.0); MEAN CORPUSCULAR VOLUME 86 FL (80-99); MONOCYTES % (AUTO) 6.1 % (1.0-10.0); NEUTROPHILS % (AUTO) 73.3 % (45.0-75.0); PLATELET COUNT 287 K/UL (150-450); RED CELL DISTRIBUTION WIDTH 14.1 % (11.6-14.8); WHITE BLOOD COUNT 15.4 K/UL (4.8-10.8)
[2017-09-03 10:04] LABS: ANION GAP 8 mmol/L (5-15); BLOOD UREA NITROGEN 23 mg/dL (7-18); CALCIUM 9.6 MG/DL (8.5-10.1); CARBON DIOXIDE 28 MMOL/L (21-32); CHLORIDE 99 MMOL/L (98-107); CREATININE 1.2 MG/DL (0.55-1.30); POTASSIUM 3.7 MMOL/L (3.5-5.1); SODIUM 135 MMOL/L (136-145)
--- NOTE | 2017-09-03 10:19 | Cardiology Report ---
APPROVED REPORT EXAM: Two-dimensional and M-mode echocardiogram with Doppler and color Doppler. INDICATION 2nd degree heart block Other Information Technically limited study due to poor acoustical windows. 2-D Echo study with pts history of Congenital HD and great vessels transposition surgery. Underfilled left ventricular chamber size with severe right ventricular enlargement. Septal and anterior hypokinesis to extent visualized. Global right ventricular hypokinesis. Left ventricular ejection fraction estimated to be 40 %. Study quality precludes accurate assessment of regional wall motion. No evidence of left ventricular hypertrophy. No evidence of pericardial effusion. Moderate left atrial enlargement. Mild right atrial enlargement. Focal aortic valve not well visualized. Mildly thickened mitral valve leaflets with normal excursion. Mild mitral annulus and aortic root calcification. Pulmonic valve not well visualized. Normal tricuspid valve structure. IVC dilated at 2.5 cm with slight physiologic collapse suggestive of increased RA pressure. A color flow and spectral Doppler study was performed and revealed: Mild aortic regurgitation. Trace mitral regurgitation. Mitral inflow velocities indicates possible pseudo normalization pattern implying moderately elevated left atrial pressure (Grade II ). Mild tricuspid regurgitation. Tricuspid systolic velocities suggests peak right ventricular systolic pressure of 29 mmHg. There is no shunt across Inter-atrial septum and Inter-ventricular septum.
[2017-09-03 12:00] VITALS: BP 121/65
[2017-09-03] MEDS ORDERED: D5 1/2NS 1,000 ML IV SCH (12:00)
--- NOTE | 2017-09-03 15:33 | Infectious Diseases Prog Note ---
Assessment/Plan Assessment/Plan ASSESSMENT AND PLAN: 1. uri/bronchitis, doubt cap, ? uti, leukocytosis, ? septic, blood culture negative, chest x-ray negative - clinically better but leukocytosis recurrent ? reason, ua negative now, blood cultures negative - azithromycin - day # 08/10 - s/p rocephin - f/u on labs, f/u blood cultures, check sed rate 2. 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 3. Past medical history is otherwise negative. 4. Social history is negative. 5. Family history is noncontributory. 6. Allergies are negative. 7. MAR was noted. 8. Case was discussed with RN. 9. Case was discussed with the patient. 10. Continue treatment per primary consultants. Subjective Constitutional: Denies: fever HEENT: Denies: congestion Respiratory: Denies: shortness of breath Cardiovascular: Denies: chest pain Gastrointestinal/Abdominal: Denies: nausea, vomiting, diarrhea Genitourinary: Denies: dysuria, hematuria Neurologic: Denies: headache Psychiatric: Denies: depression Skin: Denies: rash Hematologic: Denies: bleeding Musculoskeletal: Denies: pain Allergies: Coded Allergies: No Known Allergies (Unverified , 08/30/17) Objective Vital Signs Last 24 Hour Vital Signs Date Time Temp Pulse Resp B/P (MAP) Pulse Ox O2 Delivery O2 Flow Rate FiO2 09/03/17 12:00 97.6 92 19 121/65 100 Room Air 97.6 09/03/17 09:00 115/84 09/03/17 08:00 90 09/03/17 08:00 97.3 81 19 115/84 100 Room Air 97.3 09/03/17 04:00 98.0 88 19 112/77 100 Room Air 98.0 09/03/17 04:00 79 09/03/17 00:00 104 09/03/17 00:00 97.4 97 20 120/81 98 Room Air 97.4 09/02/17 20:00 90 09/02/17 20:00 97.2 65 20 130/76 98 Room Air 97.2 09/02/17 16:00 104 09/02/17 16:00 97.7 99 18 134/80 98 Room Air 97.7 Height (Feet): 5 Height (Inches): 10.00 Weight (Pounds): 282 General Appearance: no acute distress HEENT: normocephalic, atraumatic, anicteric, mucous membranes moist Respiratory/Chest: lungs clear, normal breath sounds, no respiratory distress, no accessory muscle use Cardiovascular: normal rate, regular rhythm, no JVD, systolic murmur Abdomen: normal bowel sounds, soft, non tender, no organomegaly, non distended Genitourinary: other - no galloway Extremities: no cyanosis Skin: no rash Neurologic/Psychiatric: pulp 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 FINDINGS: Lungs: Vascular congestion appears similar to prior exam.. Pleural space: Unremarkable. No pneumothorax. Heart: Enlarged cardiac silhouette again noted. Mediastinum: Unremarkable. Bones/joints: Unremarkable. IMPRESSION: Stable appearance of enlarged cardiac silhouette with vascular congestion. Microbiology Date/Time Source Procedure Growth Status 08/31/17 07:05 Blood Blood Culture - Preliminary NO GROWTH AFTER 48 HOURS Resulted Laboratory Tests Test 09/02/17 16:14 09/03/17 03:30 09/03/17 09:15 Urine Opiates Screen Negative (NEGATIVE) Urine Barbiturates Screen Negative (NEGATIVE) Phencyclidine (PCP) Screen Negative (NEGATIVE) Urine Amphetamines Screen Negative (NEGATIVE) Urine Benzodiazepines Screen Negative (NEGATIVE) Urine Cocaine Screen Negative (NEGATIVE) Urine Marijuana (THC) Screen Negative (NEGATIVE) Urine Color Yellow Urine Appearance Clear Urine pH 5 (4.5-8.0) Urine Specific [place] 1.020 (1.005-1.035) Urine Protein Negative (NEGATIVE) Urine Glucose (UA) Negative (NEGATIVE) Urine Ketones Negative (NEGATIVE) Urine Occult Blood Negative (NEGATIVE) Urine Nitrite Negative (NEGATIVE) Urine Bilirubin Negative (NEGATIVE) Urine Urobilinogen Normal MG/DL (0.0-1.0) Urine Leukocyte Esterase Negative (NEGATIVE) White Blood Count 15.4 K/UL (4.8-10.8) H Red Blood Count 6.20 M/UL (4.70-6.10) H Hemoglobin 17.4 G/DL (14.2-18.0) Hematocrit 53.5 % (42.0-52.0) H Mean Corpuscular Volume 86 FL (80-99) Mean Corpuscular Hemoglobin 28.0 PG (27.0-31.0) Mean Corpuscular Hemoglobin Concent 32.5 G/DL (32.0-36.0) Red Cell Distribution Width 14.1 % (11.6-14.8) Platelet Count 287 K/UL (150-450) Mean Platelet Volume 7.4 FL (6.5-10.1) Neutrophils (%) (Auto) 73.3 % (45.0-75.0) Lymphocytes (%) (Auto) 18.9 % (20.0-45.0) L Monocytes (%) (Auto) 6.1 % (1.0-10.0) Eosinophils (%) (Auto) 0.9 % (0.0-3.0) Basophils (%) (Auto) 0.9 % (0.0-2.0) Sodium Level 135 MMOL/L (136-145) L Potassium Level 3.7 MMOL/L (3.5-5.1) Chloride Level 99 MMOL/L (98-107) Carbon Dioxide Level 28 MMOL/L (21-32) Anion Gap 8 mmol/L (5-15) Blood Urea Nitrogen 23 mg/dL (7-18) H Creatinine 1.2 MG/DL (0.55-1.30) Estimat Glomerular Filtration Rate > 60 mL/min (>60) Glucose Level 184 MG/DL (74-106) H Calcium Level 9.6 MG/DL (8.5-10.1) Current Medications Medications (Trade) Dose Ordered Sig/Jane Route PRN Reason Start Time Stop Time Status Last Admin Dose Admin Acetaminophen (Tylenol) 650 mg Q4H PRN ORAL Mild Pain/Temp > 100.5 08/30/17 02:45 09/29/17 02:44 Acetaminophen/ Hydrocodone Bitart ([place] 5/325) 1 tab Q6H PRN ORAL For moderate to severe pain 08/30/17 11:12 09/06/17 11:11 Aspirin (ASA) 81 mg DAILY NG 08/30/17 09:00 09/29/17 08:59 09/03/17 08:59 Azithromycin (Zithromax) 250 mg DAILY ORAL 08/31/17 09:00 09/04/17 08:59 09/03/17 09:00 Dextrose (Dextrose 50%) 25 ml STAT PRN IV Hypoglycemia 08/30/17 02:45 09/29/17 02:44 Dextrose (Dextrose 50%) 50 ml STAT PRN IV Hypoglycemia 08/30/17 02:45 09/29/17 02:44 Dextrose/Sodium Chloride 1,000 ml @ 50 mls/hr Q20H IV 09/03/17 12:00 10/03/17 11:59 09/03/17 13:46 Furosemide (Lasix) 40 mg DAILY IV 09/01/17 09:00 10/01/17 08:59 09/03/17 08:54 Heparin Sodium (Porcine) (Heparin 5000 units/ml) 5,000 units EVERY 12 HOURS SUBQ 08/30/17 09:00 09/29/17 08:59 09/03/17 08:57 Lisinopril (Zestril) 10 mg DAILY ORAL 09/01/17 09:00 10/01/17 08:59 09/03/17 09:00 Ondansetron HCl (Zofran ODT) 4 mg Q6H PRN ORAL Nausea & Vomiting 08/30/17 02:45 09/29/17 02:44 Spironolactone (Aldactone) 25 mg DAILY ORAL 09/01/17 09:00 10/01/17 08:59 09/03/17 08:59 Gerri Chery MD September 03, 2017 15:33
--- NOTE | 2017-09-03 19:43 | General Progress Note ---
Assessment/Plan Problem List: (1) UTI (urinary tract infection) ICD Codes: N39.0 - Urinary tract infection, site not specified SNOMED: 67982622 (2) Cardiomegaly ICD Codes: I51.7 - Cardiomegaly SNOMED: 9381308 (3) Near syncope ICD Codes: R55 - Syncope and collapse SNOMED: 637544158, 642052577 (4) Morbid obesity with BMI of 40.0-44.9, adult ICD Codes: E66.01 - Morbid (severe) obesity due to excess calories; Z68.41 - Body mass index (BMI) 40.0-44.9, adult SNOMED: 464564850, 771355611 (5) Cardiomyopathy ICD Codes: I42.9 - Cardiomyopathy, unspecified SNOMED: 56724536, 309226873 Qualifiers: Qualified Codes: I42.9 - Cardiomyopathy, unspecified (6) CHF (congestive heart failure) ICD Codes: I50.9 - Heart failure, unspecified SNOMED: 63754297, 555951890 Qualifiers: Qualified Codes: I50.9 - Heart failure, unspecified Status: stable, progressing Assessment/Plan - Cardiology and ID consulted, appreciate rec's - s/p IV ceftriaxone. continue azithromycin D5/5 - f/u urine cx - CXR showing mild interstitial congestion - Trend WBC, uptrending - syncope workup: trops x 3 negative, tele monitor, TTE (EF 30-35%) - check TSH, lipid panel, A1c - EKG showing NSR with RBBB - pain control and supportive care - pending transfer to higher level of care for cardiac cath DVT Prophylaxis: SCD, HSQ Code Status: Full Hospital Classification Declaration: Based on this initial evaluation, and depending on the patient's clinical course, I anticipate that this patient will require hospitalization for 2-3 days for syncope and close respiratory/ hemodynamic monitoring. Disposition: Once the patient is stable to leave the hospital, I anticipate the patient will likely be discharged to the following environment: home I spent [] minutes on this patient's case, and 33 minutes were dedicated to counseling and/or care coordination. Discussed with patient/family, nursing staff, SW/CM, cardiology, and ID regarding clinical status, treatment course, and disposition planning. Time of note may not reflect time of encounter. Subjective Date patient seen: September 03, 2017 Time patient seen: 11:00 Allergies: Coded Allergies: No Known Allergies (Unverified , 08/30/17) Subjective - AF, HDS - denies cp, sob - [facility] - WBC uptrending Objective Last 24 Hour Vital Signs Date Time Temp Pulse Resp B/P (MAP) Pulse Ox O2 Delivery O2 Flow Rate FiO2 09/03/17 16:00 93 09/03/17 12:00 92 09/03/17 12:00 97.6 92 19 121/65 100 Room Air 97.6 09/03/17 09:00 115/84 09/03/17 08:00 90 09/03/17 08:00 97.3 81 19 115/84 100 Room Air 97.3 09/03/17 04:00 98.0 88 19 112/77 100 Room Air 98.0 09/03/17 04:00 79 09/03/17 00:00 104 09/03/17 00:00 97.4 97 20 120/81 98 Room Air 97.4 09/02/17 20:00 90 09/02/17 20:00 97.2 65 20 130/76 98 Room Air 97.2 Intake and Output 09/02/17 09/03/17 19:00 07:00 Intake Total 1430 ml 340 ml Balance 1430 ml 340 ml Intake Oral 1320 ml 340 ml IV Total 110 ml # Voids 5 2 Laboratory Tests 09/03/17 03:30: Urine Color Yellow, Urine Appearance Clear, Urine pH 5, Urine Specific [place] 1.020, Urine Protein Negative, Urine Glucose (UA) Negative, Urine Ketones Negative, Urine Occult Blood Negative, Urine Nitrite Negative, Urine Bilirubin Negative, Urine Urobilinogen Normal, Urine Leukocyte Esterase Negative 09/03/17 09:15: White Blood Count 15.4H, Red Blood Count 6.20H, Hemoglobin 17.4, Hematocrit 53.5H, Mean Corpuscular Volume 86, Mean Corpuscular Hemoglobin 28.0, Mean Corpuscular Hemoglobin Concent 32.5, Red Cell Distribution Width 14.1, Platelet Count 287, Mean Platelet Volume 7.4, Neutrophils (%) (Auto) 73.3, Lymphocytes (% ) (Auto) 18.9L, Monocytes (%) (Auto) 6.1, Eosinophils (%) (Auto) 0.9, Basophils (%) (Auto) 0.9, Erythrocyte Sedimentation Rate 3, Sodium Level 135L, Potassium Level 3.7, Chloride Level 99, Carbon Dioxide Level 28, Anion Gap 8, Blood Urea Nitrogen 23H, Creatinine 1.2, Estimat Glomerular Filtration Rate > 60, Glucose Level 184H, Calcium Level 9.6 Height (Feet): 5 Height (Inches): 10.00 Weight (Pounds): 282 General Appearance: no apparent distress, alert, morbidly obese EENT: PERRL/EOMI, normal ENT inspection Neck: non-tender, normal alignment, supple Cardiovascular: normal peripheral pulses, normal rate, regular rhythm Respiratory/Chest: chest wall non-tender, lungs clear, normal breath sounds Abdomen: normal bowel sounds, non tender, soft Extremities: normal range of motion, non-tender Neurologic: corporate communications specialist II-XII grossly normal, no motor/sensory deficits, alert, oriented x 3 Skin: normal pigmentation, warm/dry Elizabeth Marin NP September 03, 2017 19:43
--- NOTE | 2017-09-04 12:06 | Discharge Summary ---
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 He reported sitting down when he fell flushing and dizziness. He was unable to focus. When he tried to stood up, symptoms got worse. He never passed out and was able to call 911 . He reported chest tightness during the event. He felt that his heart was beating faster. Episode lasted about a minute. He had similar symptoms a week ago. Patient had a Holter monitor in the past with negative readings. In emergency department he was back to baseline , no nausea , no vomiting. he denied fevers, chills, abdominal pain, No chest pain, no shortness of breath, Upon evaluation in emergency department, vital signs were stable: pulse oximetry was stable on room air, stable blood pressure ,heart rate 102. Laboratory workup revealed leukocytosis WBC 14.7 , stable hemoglobin and hematocrit. Troponin negative. Pro BNP 1239. Urine toxicology screen was negative. Urinalysis revealed e +1 leukocyte esterase, pyuria and few bacteria. EKG revealed sinus rhythm with right bundle branch block, no PVC, no ectopy. Chest x-ray revealed cardiomegaly with mild interstitial congestion, but no consolidation, no effusion, no pneumothorax. Echocardiogram demonstrated ejection fraction of 30-35%, severe right ventricular enlargement. Septal and anterior hypokinesis. Right ventricular systolic pressure of 29. Grade 2 diastolic dysfunction. Patient admitted with diagnoses of near syncope, cardiomyopathy, congestive heart failure, leukocytosis ,possible urinary tract infection, morbid obesity CONSULTANTS: tone regulator Dr. Mares pulmonary the [facility] ID specialist Dr. Chery [facility] COURSE: Patient admitted to telemetry floor. Cardiology consult was requested. Serial troponin 4 were negative. Patient was closely monitored. On telemetry patient had episodes of Mobic type II heart block, intermittent complete right bundle branch block as well as the run of 9 beats with nonsustained ventricular tachycardia. Patient started on empiric antibiotic for possible pneumonia and UTI. Infectious disease specialist followed. IV antibiotics were provided as per infectious disease specialist recommendations. Leukocytosis persisted, prior to transfer- 15.4. No fever. Patient clinically improved however continued to have leukocytosis. Blood culture negative. Chest x-ray did not show any evidence of pneumonia. Patient undergone treatment with azithromycin for 5 days. Repeated urinalysis was negative. Per tone regulator, patient with newly diagnosed severe cardiomyopathy and needs cardiac catheterization. Medical management instituted with HUMZA inhibitor and diuretics: Aldactone and Lasix. Coreg was on hold in view of episode of Mobic type II and intermittent complete heart block. Cardiorenal parameters and volumes were closely monitored. Per tone regulator patient will benefit from ER study after cardiac catheterization. Patient was on waiting list for transfer to [facility] for cardiac catheterization. Lipid panel revealed elevated triglycerides and elevated LDL. Hemoglobin A1c 6.9.TSH within normal limits Patient was counseled on low-fat, low-cholesterol, no concentrated sweets diet. Consider starting statin after catheterization. Patient will likely benefit from starting metformin after cardiac catheterization. . Pain management provided. Supportive care provided. Bowel regimen instituted. Supplemental oxygen provided as needed to keep pulse oximetry above 92% along with pulmonary hygiene and mobilization. Antitussive provided on as needed basis. DVT prophylaxis provided. Patient was recommended to have sleep study as outpatient. Steel Inspector closely followed, he doubted pneumonia, most likely bronchitis versus upper respiratory infection. Bed was secured at [facility]. 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 After cardiac catheterization patient may need EP study. Follow up with doctor at the accepting facility. Further recommendations will be given by attending physician after cardiac catheterization . I have been assigned to dictate discharge summary for this account. I was not involved in the patient's management. Alis Oliver NP September 04, 2017 12:06
== END 2017-09-03 17:40 | disposition short-term general hospital (02) | DRG 314 ==
LOC: EDBD 00:06 → EMR 00:18 → 2E 01:50 → EDBEDREQ 02:14 → 2E 03:18
DX: I42.9 Cardiomyopathy, unspecified (principal); J18.9 Pneumonia, unspecified organism; I47.2 Ventricular tachycardia; E66.2 Morbid (severe) obesity with alveolar hypoventilation; I50.30 Unspecified diastolic (congestive) heart failure; Z68.41 Body mass index [BMI] 40.0-44.9, adult; I44.2 Atrioventricular block, complete; N39.0 Urinary tract infection, site not specified; I44.1 Atrioventricular block, second degree; I45.10 Unspecified right bundle-branch block; J40 Bronchitis, not specified as acute or chronic; Q24.9 Congenital malformation of heart, unspecified
CPT/HCPCS: 36415; 71045; 80048; 80053; 80061; 80307; 81003; 82550; 82553; 83036; 83735; 83880; 84443; 84484; 85025; 85651; 87040; 93005; 93306; 99285